=== PATIENT | male | born 1960 | race Caucasian/White ===

== ENCOUNTER 2017-11-07 12:14 | Outpatient (CLI) | payer BC, MEDICARE ==
--- NOTE | 2017-11-07 14:07 | ULT ---
HEPATIC ULTRASOUND WITH DOPPLER: HISTORY: Hepatitis C. FINDINGS: The liver shows a slightly coarse echotexture. No focal liver lesion or mass seen. The gallbladder is abnormal with a mildly thickened gallbladder wall. No evidence of gallstone identified. There is suggestion of mild pericholecystic edema. A small amount of ascites is noted. The common duct is p rominent, measured at 7 mm. No intrahepatic ductal dilatation. Color Doppler with spectral analysis shows normal blood flow in the hepatic veins, portal veins, and hepatic artery. Splenic artery exhibits normal flow. Spleen size is upper normal, measured at 11.3 cm. The pancreas is partially imaged and appears unremarkable as visualized. The pancreatic tail is not imaged. IMPRESSION: 1. Mild prominence of the extrahepatic biliary duct. 2. Small amount of ascites. 3. Gallbladder wall thickening and pericholecystic edema, which may be exacerbated by the ascites. 4. No evidence of gallstones. 5. Normal hepatic vascular flow with Doppler. POS: [facility]
== END 2017-11-07 12:15 | disposition home or self-care (01) ==
LOC: ULT 12:14
PROVIDERS: ATTEND Internal Medicine Gastroenterology
DX: B19.20 Unspecified viral hepatitis C without hepatic coma (principal); R18.8 Other ascites; K82.8 Other specified diseases of gallbladder
CPT/HCPCS: 76705

== ENCOUNTER 2018-03-11 17:47 | Inpatient (IN) | payer BC, MEDICARE ==
--- NOTE | 2018-03-11 19:10 | RAD ---
TWO VIEW CHEST: 03/11/18 HISTORY: Cough. No comparison. There is focal opacity in the left lower lung in the infrahilar region. This could represent focal in flammatory infiltrate. Because of its focal appearance, followup is necessary to make sure clearing a fter medical treatment. Heart and mediastinum unremarkable. IMPRESSION: A focal opacity in the left infrahilar region. Possibly focal infiltrate given history of cough and c ongestion. Recommend followup post treatment to ensure clearing as discussed above. Code T POS: [place]
[2018-03-11 19:31] LABS: #Lymphocytes 0.5 thou/uL (1.20-3.40); #Monocytes 0.7 thou/uL (0.11-0.59); #Neutrophils 6.5 thou/uL (1.40-6.50); %Basophils 0.1 % (0.0-1.0); %Eosinophils 0.2 % (0.0-10.0); %Monocytes 9.6 % (0.0-10.0); %Neutrophils 84.1 % (42.0-75.0); Hemoglobin 12.1 g/dL (14.0-18.0); Mean Corpuscular HGB CONC 34.3 g/dL (32.0-36.0); Mean Corpuscular Hemoglobin 32.5 pg (27.0-31.0); Mean Corpuscular Volume 94.8 fl (80.0-94.0); Mean Platelet Volume 7.9 fL (7.4-10.4); Platelet Count 110 thou/uL (130-400); RBC Distribution Width 12.4 % (11.5-14.5); Red Blood Cell (RBC) Count 3.73 mill/uL (4.70-6.10); White Blood Cell (WBC) Count 7.7 thou/uL (4.8-10.8)
[2018-03-11 19:36] LABS: PLT Morphology Comment Appears Decreased; RBC Morphology Normal
[2018-03-11 19:41] LABS: ALT (SGPT) 88 U/L (8-55); AST (SGOT) 104 U/L (5-34); Albumin 2.8 g/dL (3.5-5.0); Alkaline Phosphatase 303 U/L (40-150); Anion Gap 18 mmol/L (10-20); BUN (Urea Nitrogen) 79 mg/dL (8.4-25.7); Bilirubin, Total 0.7 mg/dL (0.2-1.2); CK (CPK) 1694 U/L (30-200); Calc. Creatinine Clearance 0 mL/min (70-130); Calcium 7.5 mg/dL (7.8-10.44); Carbon Dioxide 18 mmol/L (22-29); Chloride 96 mmol/L (98-107); Estimated GFR-MDRD 5; Globulin 3.3 g/dL (2.4-3.5); Glucose 129 mg/dL (70-105); Lipase 98 U/L (8-78); Potassium 3.6 mmol/L (3.5-5.1); Protein, Total 6.1 g/dL (6.0-8.3); Sodium 128 mmol/L (136-145)
[2018-03-11 19:45] LABS: Troponin I 0.049 ng/mL (< 0.028)
[2018-03-11 19:52] LABS: Bilirubin Negative (Negative); Blood, Urine Large (Negative); Clarity CLEAR (Clear); Glucose, Urine (Dipstick) 100 mg/dL (Negative); Leukocyte Negative (Negative); Nitrite Negative (Negative); Protein, Urine (Dipstick) 300 mg/dL (Neg-Trace); Specific Gravity, Urine 1.011 (1.002-1.036); Urobilinogen 0.2 mg/dL (0.2-1.0)
[2018-03-11 19:54] LABS: Bacteria/HPF None Seen HPF (None Seen); Hyaline Casts/LPF 0-3 HYALINE CAST LPF (0-3 Hyaline); RBC/HPF 0-3 HPF (0-3); Squamous Epithelial 0-3 HPF (0-3); WBC/HPF None Seen HPF (0-3)
[2018-03-11 19:54] LABS: CKMB 10.2 ng/mL (0-6.6)
[2018-03-11] MEDS ORDERED: MEROPENEM 1 GM/50 ML 1 GM in Premix Bag 1 BAG IVPB SCH (20:00)
[2018-03-11] MEDS ORDERED: Acetaminophen 325 MG TAB ONE (20:51)
[2018-03-11] MEDS ORDERED: Azithromycin 250 MG TAB ONE (21:15)
[2018-03-11] MEDS ORDERED: Ondansetron HCl/PF 4 MG/2 ML Vial IVP PRN (22:10)
[2018-03-11] MEDS ORDERED: Ondansetron ODT 4 MG TAB SL PRN (22:10)
[2018-03-11 22:11] LABS: Troponin I 0.047 ng/mL (< 0.028)
[2018-03-11 22:49] VITALS: BMI 26.8
[2018-03-11] MEDS ORDERED: traZODone HCl 50 MG TAB PO SCH (23:45)
[2018-03-12] MEDS ORDERED: Nitroglycerin 0.4 MG TAB (25 Tab Bottle) PO PRN (01:24)
[2018-03-12] MEDS ORDERED: Acetaminophen 325 MG TAB PO PRN (01:28)
[2018-03-12] MEDS ORDERED: Milk Of Magnesia 30 ML UDCUP PO PRN (01:28)
[2018-03-12] MEDS ORDERED: Senokot 8.6 MG TAB PO PRN (01:28)
[2018-03-12] MEDS ORDERED: Calcium Carbonate 500 MG ChewTAB PO PRN (01:28)
--- NOTE | 2018-03-12 02:08 | HP ---
DATE OF ADMISSION: 03/11/2018 The patient was seen and examined on 03/11/2018. PRIMARY CARE PHYSICIAN: Dr. Velasco. PRIMARY EXTRUDING MACHINE OPERATOR: Dr. Sorto. CHIEF COMPLAINT: Generalized weakness. HISTORY OF PRESENT ILLNESS: The patient is a 57-year-old male with end-stage renal disease on peritoneal dialysis with recent liver biopsy, presented to the emergency room with above complaints. Over the last 4-5 days, the patient has been feeling generally weak with malaise. He has a history of chronic hepatitis C and underwent liver biopsy at [facility] last week. Since then, he has not been feeling well. He denies any fever; however, has intermittent chills. He had some nausea without any vomiting or diarrhea. He has been coughing over the last 5 days also. The cough is productive of clear scanty phlegm. He denies any sick contacts. In the emergency room, his vital signs showed temperature 99.7, respirations of 18, pulse 82, blood pressure 158/77 with O2 saturation 95% on room air. His chest x-ray showed focal infiltrate in the left infrahilar region. He received azithromycin, meropenem with Tylenol in the emergency room. PAST MEDICAL HISTORY: 1. End-stage renal disease, on peritoneal dialysis. 2. Chronic hepatitis C. 3. Anemia secondary to renal insufficiency. 4. Hypertension. 5. Anxiety and depression. PAST SURGICAL HISTORY: 1. Dialysis access. 2. Appendectomy. 3. Left shoulder surgery. 4. Recent liver biopsy. ALLERGIES: The patient denies any drug allergies. CURRENT HOME MEDICATIONS: Amlodipine 10 mg daily, calcitriol 0.5 mg daily, ferrous sulfate daily, hydralazine 50 mg 3 times daily, metoprolol tartrate 50 mg twice a day, Renvela 800 mg three times daily, trazodone 100 mg at bedtime. SOCIAL HISTORY: The patient currently lives at home. Denies any current use of smoking or drug use. He has history of cannabis abuse. He has abused heroin in the remote past. FAMILY HISTORY: Negative for premature coronary artery disease or diabetes. REVIEW OF SYSTEMS: The following complete review of systems was negative, unless otherwise mentioned in the HPI or below: Constitutional: Weight loss or gain, ability to conduct usual activities. Skin: Rash, itching. Eyes: Double vision, pain. ENT/Mouth: Nose bleeding, neck stiffness, pain, tenderness. Cardiovascular: Palpitations, dyspnea on exertion, orthopnea. Respiratory: Shortness of breath, wheezing, cough, hemoptysis, fever or night sweats. Gastrointestinal: Poor appetite, abdominal pain, heartburn, nausea, vomiting, constipation, or diarrhea. Genitourinary: Urgency, frequency, dysuria, nocturia. Musculoskeletal: Pain, swelling. Neurologic/Psychiatric: Anxiety, depression. Allergy/Immunologic: Skin rash, bleeding tendency. PHYSICAL EXAMINATION: VITAL SIGNS: As discussed above. GENERAL: A 57-year-old male with generalized weakness and fatigue. HEENT: Head atraumatic, normocephalic. Sclerae are anicteric. Moist mucous membranes. No oral lesion. NECK: Supple, no JVD appreciated. No carotid bruit. LUNGS: Showed scattered rhonchi with left-sided rales. No wheezing appreciated. HEART: S1, S2 present. Regular rate and rhythm. No murmur, rubs, or gallops appreciated. ABDOMEN: Soft, bowel sounds present. No drainage around the peritoneal dialysis catheter. No rebound or guarding. EXTREMITIES: No edema or calf tenderness. NEUROLOGIC: Grossly nonfocal, moves all four extremities. PSYCHIATRY: Alert, awake, oriented x3. SKIN: Warm and dry. LYMPH NODES: No palpable lymph nodes in the neck. PERIPHERAL VASCULAR: Radial pulses palpable bilaterally. MUSCULOSKELETAL: No joint swelling or tenderness. LABORATORY AND X-RAY FINDINGS: 1. CBC showed WBC 7.7 with hemoglobin 12.1, hematocrit 35.4, platelet of 110. 2. Chemistries showed sodium 128, potassium 3.6, chloride 96, bicarbonate 18, BUN 79, creatinine 10.81. 3. CK was 1694. 4. Troponins of 0.049. BNP 680. Albumin 2.8. 5. Peritoneal fluid culture, Gram stain was negative. Cultures pending. 6. Chest x-ray by my review as discussed above. 7. Telemetry monitoring by my review showed sinus rhythm. 8. EKG by my review showed sinus rhythm with QT interval of 486 milliseconds. IMPRESSION: 1. Sepsis due to pneumonia ? Pneumococcus vs Viral. Rule out other pathology. 2. Rhabdomyolysis, probably secondary to sepsis. 3. Elevated BNP, probably secondary to volume overload in the setting of end- stage renal disease. Rule out congestive heart failure. 4. Abnormal liver function tests. The patient underwent recent liver biopsy. 5. Hypoalbuminemia secondary to history of nephrotic syndrome. 6. Hyponatremia. 7. Thrombocytopenia, probably secondary to sepsis. 8. Metabolic acidosis, probably secondary to sepsis. Lactic acid was normal. 9. End-stage renal disease on peritoneal dialysis. 10. Anxiety and depression. 11. Cannabis abuse. 12. Elevated troponins, probably secondary to demand ischemia. PLAN: The patient will be monitored on the telemetry unit. We will continue empiric antibiotics. Nephrology has been consulted for peritoneal dialysis management. We will consult Infectious Disease due to history of chronic hepatitis C with recent liver biopsy. We will continue empiric antibiotics. We will repeat CK. Echocardiogram will be obtained. We will monitor platelets closely. We will avoid heparin or Lovenox due to thrombocytopenia. Plan of care was discussed with the patient in detail. He stated understanding. The patient will require 2-3 days for stabilization. MTDD
[2018-03-12] MEDS: cefTRIAXone\\ROCEPHIN 1 GM in Sodium Chloride 0.9% 100 ML IVPB SCH (02:40)
[2018-03-12 05:42] LABS: #Lymphocytes 0.6 thou/uL (1.20-3.40); #Monocytes 0.8 thou/uL (0.11-0.59); #Neutrophils 5.8 thou/uL (1.40-6.50); %Eosinophils 0.5 % (0.0-10.0); %Lymphocytes 8.5 % (21.0-51.0); %Monocytes 11.3 % (0.0-10.0); %Neutrophils 79.6 % (42.0-75.0); Hemoglobin 11.9 g/dL (14.0-18.0); INR-International Normal Ratio 1.1; Mean Corpuscular HGB CONC 33.6 g/dL (32.0-36.0); Mean Corpuscular Hemoglobin 32.3 pg (27.0-31.0); Mean Platelet Volume 8.2 fL (7.4-10.4); Platelet Count 112 thou/uL (130-400); RBC Distribution Width 12.4 % (11.5-14.5); Red Blood Cell (RBC) Count 3.68 mill/uL (4.70-6.10); White Blood Cell (WBC) Count 7.3 thou/uL (4.8-10.8)
[2018-03-12 05:43] LABS: PTT 38.5 SEC (22.9-36.1)
[2018-03-12 05:59] LABS: Troponin I 0.054 ng/mL (< 0.028)
[2018-03-12 06:01] LABS: ALT (SGPT) 78 U/L (8-55); AST (SGOT) 90 U/L (5-34); Albumin 2.7 g/dL (3.5-5.0); Alkaline Phosphatase 279 U/L (40-150); Anion Gap 16 mmol/L (10-20); BUN (Urea Nitrogen) 79 mg/dL (8.4-25.7); Bilirubin, Total 0.6 mg/dL (0.2-1.2); CK (CPK) 1433 U/L (30-200); Calc. Creatinine Clearance 9 mL/min (70-130); Calcium 7.6 mg/dL (7.8-10.44); Carbon Dioxide 21 mmol/L (22-29); Chloride 98 mmol/L (98-107); Estimated GFR-MDRD 5; Globulin 3.1 g/dL (2.4-3.5); Glucose 95 mg/dL (70-105); Potassium 3.3 mmol/L (3.5-5.1); Protein, Total 5.8 g/dL (6.0-8.3); Sodium 132 mmol/L (136-145)
[2018-03-12] MEDS: Diabetic Tussin 200 MG/10 ML UDCUP PO PRN ×2 (06:08→20:00)
[2018-03-12] MEDS: Ferrous Sulfate 325 MG TAB PO SCH (09:46)
[2018-03-12] MEDS: Aspirin 81 mg Enteric Coated Tablet PO SCH (09:46)
[2018-03-12] MEDS: Metoprolol Tartrate 50 MG TAB PO SCH ×2 (09:46→20:01)
[2018-03-12] MEDS: Sevelamer Carbonate 800 MG TAB PO SCH ×3 (09:47→16:54)
[2018-03-12] MEDS: hydrALAZINE 25 MG TAB PO SCH ×3 (09:47→20:00)
[2018-03-12] MEDS: Calcitriol 0.25 MCG CAP PO SCH (09:48)
[2018-03-12] MEDS: Doxycycline 100 MG CAP PO SCH ×2 (09:48→20:00)
[2018-03-12] MEDS: Amlodipine 10 MG TAB PO SCH (09:48)
--- NOTE | 2018-03-12 10:47 | CON ---
DATE OF CONSULTATION: 03/12/2018 HISTORY OF PRESENT ILLNESS: Mr. Jones is a 57-year-old male with ESRD and currently on daphne toneal dialysis. He was admitted for fever and chills. According to the patient, he was having feve r one day prior to admission. Also, of interest, he underwent transjugular liver biopsy done in [facility] as part of his transplant workup for his renal transplant workup. We are now following this neeru ent for maintenance peritoneal dialysis. He underwent peritoneal dialysis without any difficulty yes terday. The patient is feeling better this morning. REVIEW OF SYSTEMS: Positive for fever and chills. Positive for nausea, positive for generalized mal aise, decreased appetite. No chest pain or shortness of breath, no diarrhea, no constipation, no dys uria. Occasional joint pains. No new skin rash. No sore throat, no syncopal episode, no headache, no diplopia. MEDICATIONS: The patient is currently on DuoNeb q.4. p.r.n., Norvasc 10 mg daily, Ecotrin 81 mg onc e a day, calcitriol 0.5 mcg every day, Tums 1000 mg q.4 hours, ceftriaxone 1 gram IV q.24 hours. Vib ramycin 100 mg p.o. b.i.d., ferrous sulfate 325 mg once a day, Lopressor 50 mg b.i.d., Renvela 800 mg 1 tab t.i.d. with meals, Desyrel 100 mg at bedtime. PAST MEDICAL HISTORY: 1. ESRD - currently on peritoneal dialysis, secondary to chronic GN. 2. Chronic hepatitis C. Status post antiviral medication. Serologies are now normal. 3. Hypertension. 4. Secondary hyperparathyroidism. PAST SURGICAL HISTORY: 1. Status post left shoulder surgery. 2. Status post appendectomy. 3. Status post tonsillectomy. 4. Status post PD catheter placement. 5. Status post liver biopsy. ALLERGIES: None. TRAUMA: None. IMMUNIZATIONS: Up to date. HOSPITALIZATIONS: Please see past medical history. FAMILY HISTORY: No family history of ESRD. SOCIAL HISTORY: He lives in [place]. He is a retired truck sales representative. He is , no child tanya. Education; high school. Smoked for 25 years, 1 pack a day. Alcohol none. Status post blood t ransfusion, status post IV heroin use. PHYSICAL EXAMINATION: VITAL SIGNS: Blood pressure 162/76, heart rate 72, respiratory rate 17, temperature 97.6, pulse ox 9 7%. GENERAL: Noted to be awake, supine, comfortable, not in distress. SKIN: Adequate turgor. HEENT: He has pinkish conjunctivae, anicteric sclerae. NECK: No neck mass, no carotid bruits, no JVD. CHEST: No deformities. LUNGS: Clear breath sounds, no wheezing, no crackles. HEART: Normal sinus rhythm. No murmur, no gallops, no rubs. ABDOMEN: Globular, soft, nontender. No masses. EXTREMITIES: No edema, no deformities. Chest x-ray of 03/11/2018, opacity in the left infrahilar region. LABORATORY: White count 7.3, hemoglobin 11.9. Sodium 132, potassium 3.3, chloride 98, carbon dioxid e 21, BUN 79, creatinine 10.06, glucose 95, AST 90, ALT 78, CK 1433, albumin 2.7. ASSESSMENT AND PLAN: 1. End-stage renal disease, stable. Continue current CCPD regimen. Using 1.5% PD solution due to t he recent decreased p.o. intake. Review of the last Kt/V suggests he is adequately dialyzed with the current peritoneal dialysis. 2. Elevated liver function tests/chronic hepatitis C - the patient being reevaluated by his Renal Tr ansplant Program. He underwent a liver biopsy. He did receive antiviral therapy for his chronic hep atitis C. 3. Hypertension. Continue current blood pressure meds. 4. Mild hypokalemia - continue to observe. This should improve with his increased p.o. intake. I agree with the current management.
--- NOTE | 2018-03-12 14:06 | PDOC.EVN ---
Event Note - Event Note Event Note: Discussed with patient and Family, about Plan to continue Monitor him for any fever, and source of infection. Will follow Dr. Sorto recommedations regarding PD.
[2018-03-12 19:17] LABS: Legionella Urinary Ag Negative (Negative); Strep pneumo Urine Ag NEGATIVE (NEGATIVE)
[2018-03-12] MEDS ORDERED: traZODone HCl 50 MG TAB PO SCH (21:00)
[2018-03-13] MEDS: cefTRIAXone\\ROCEPHIN 1 GM in Sodium Chloride 0.9% 100 ML IVPB SCH (01:11)
--- NOTE | 2018-03-13 01:35 | CON ---
DATE OF CONSULTATION: 03/12/2018 REASON FOR CONSULTATION: Fever. HISTORY OF PRESENT ILLNESS: A 57-year-old patient who has a history of chronic hepatitis C; chronic renal failure with end-stage renal disease, on peritoneal dialysis, the renal failure appears to be s econdary to chronic glomerulonephritis associated with hepatitis C who has completed treatment for he patitis C, which appears to have been successful about a year ago and he has been evaluated for possi ble renal transplantation. As part of that evaluation, he underwent a liver biopsy about a week ago in [place]. Apparently, they did a transvenous approach for the biopsy and he reports that he did rangel ve pain during the procedure. After the procedure, he never felt back to baseline and then he starte d having a lot of coughing spells and had general malaise, had some fever up to 101 with chills, some nausea, but no diarrhea and no genitourinary symptoms. He had some rhinorrhea as well associated wi th the above symptoms. Eventually, he came to the emergency room where he was admitted. He had a sm all area of infiltration in the left side. He was given antimicrobial therapy and he is currently in the floor in the [facility] area. He is pleasant, in no acute distress. He feels better since admission. No headaches, visual symptoms, sore throat, odynophagia, or dysphagia. No toothache. No back pain . Cough has improved. No abdominal pain. No genitourinary symptoms. No bleeding. No joint sympto ms. No skin disorder. PAST MEDICAL HISTORY: Chronic hepatitis C, which has been successfully treated reportedly in [place] ; recent liver biopsy, which was done as part of evaluation for possible renal transplant; peritoneal dialysis for management of end-stage renal disease; hypertension; chronic glomerulonephritis, which led to end-stage renal disease. PAST SURGICAL HISTORY: Peritoneal dialysis access placement; appendectomy; liver biopsy, which was d one via transvenous route. ALLERGIES: None. MEDICATIONS AT HOME: Norvasc, calcitriol, ferrous sulfate, hydralazine, metoprolol, Renvela, trazodo ne. SOCIAL HISTORY: He lives in the area. Former smoker. History of IV heroin in the remote past. 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 FAMILY HISTORY: Noncontributory. CURRENT MEDICATIONS: Include Tylenol, DuoNeb, Norvasc, Ecotrin, Rocaltrol, ceftriaxone, doxycycline, Apresoline, Lopressor, Senokot, trazodone. PHYSICAL EXAMINATION: VITAL SIGNS: T-max 99.3, blood pressure 160/80, pulse 70, respirations 17, O2 saturation 97%. GENERAL: Appears in no distress, pleasant. SKIN: With no areas of skin breakdown. The patient has a peripheral IV access. He does not have a Quintero catheter. No lymphadenopathy. HEENT: Ocular movements conjugate. Oral cavity was not remarkable. NECK: Supple. No jugular vein distention. LUNGS: Symmetric air entry. I could not perceive any evidence of crackles or wheezing. HEART: S1, S2 without murmurs. No S3, S4. ABDOMEN: Soft, not distended, no tenderness. No ascites. No bladder distention. EXTREMITIES: No joint inflammatory activity. Pulses 1+ in dorsalis pedis. No clubbing, cyanosis, o r edema. He is able to move extremities equally. NEUROLOGIC: His cognitive function appears to be intact. LABORATORY DATA: Initial white cell count 7.7, hemoglobin 12, platelets 110, 84% neutrophils. INR i s 1.1. Sodium 132, creatinine 10.6, alkaline phosphatase 279, ALT 78, AST 90. CK was 1400. Microbi ology: We have peritoneal dialysis fluid culture pending. I do not find a cell count from the perit rowe dialysis fluid. The patient had a chest x-ray on admission yesterday. This demonstrated a focal opacity in left lowe r lung, infrahilar region. ASSESSMENT: 1. End-stage renal disease secondary to glomerulonephritis, on peritoneal dialysis. 2. Evaluation for renal transplant with recent liver biopsy about a week before. 3. Respiratory symptoms with cough following the biopsy associated with fever. DISCUSSION: Differential diagnosis includes respiratory tract infection, either viral or bacterial; thromboembolism less likely. Complication related to the biopsy is another possibility. This appear s to be less likely though because his hemoglobin seems to be stable. Continue current regimen. [place] ck respiratory virus PCR panel, Legionella, and Streptococcus pneumoniae antigen. Follow up results of peritoneal dialysis fluid cultures. Clinically, the evidence argues against PD-associated complic ations.
[2018-03-13 05:29] LABS: #Eosinphils 0.2 thou/uL (0.0-0.7); #Lymphocytes 0.8 thou/uL (1.20-3.40); #Monocytes 0.8 thou/uL (0.11-0.59); #Neutrophils 4.9 thou/uL (1.40-6.50); %Basophils 0.4 % (0.0-1.0); %Eosinophils 2.6 % (0.0-10.0); %Monocytes 11.2 % (0.0-10.0); %Neutrophils 73.8 % (42.0-75.0); Hemoglobin 11.7 g/dL (14.0-18.0); Mean Corpuscular HGB CONC 34.1 g/dL (32.0-36.0); Mean Corpuscular Hemoglobin 32.7 pg (27.0-31.0); Mean Corpuscular Volume 95.7 fl (80.0-94.0); Mean Platelet Volume 8.1 fL (7.4-10.4); Platelet Count 125 thou/uL (130-400); RBC Distribution Width 12.6 % (11.5-14.5); White Blood Cell (WBC) Count 6.7 thou/uL (4.8-10.8)
[2018-03-13 05:43] LABS: ALT (SGPT) 69 U/L (8-55); AST (SGOT) 76 U/L (5-34); Albumin 2.7 g/dL (3.5-5.0); Alkaline Phosphatase 315 U/L (40-150); Anion Gap 14 mmol/L (10-20); BUN (Urea Nitrogen) 72 mg/dL (8.4-25.7); Bilirubin, Total 0.5 mg/dL (0.2-1.2); Calc. Creatinine Clearance 10 mL/min (70-130); Calcium 7.7 mg/dL (7.8-10.44); Carbon Dioxide 22 mmol/L (22-29); Chloride 99 mmol/L (98-107); Estimated GFR-MDRD 6; Globulin 3.2 g/dL (2.4-3.5); Glucose 83 mg/dL (70-105); Potassium 3.3 mmol/L (3.5-5.1); Protein, Total 5.9 g/dL (6.0-8.3); Sodium 132 mmol/L (136-145)
[2018-03-13] MEDS: Ferrous Sulfate 325 MG TAB PO SCH (08:18)
[2018-03-13] MEDS: Sevelamer Carbonate 800 MG TAB PO SCH ×2 (08:18→12:13)
[2018-03-13] MEDS: Amlodipine 10 MG TAB PO SCH (08:19)
[2018-03-13] MEDS: hydrALAZINE 25 MG TAB PO SCH ×2 (08:19→15:13)
[2018-03-13] MEDS: Aspirin 81 mg Enteric Coated Tablet PO SCH (08:19)
[2018-03-13] MEDS: Calcitriol 0.25 MCG CAP PO SCH (08:19)
[2018-03-13] MEDS: Doxycycline 100 MG CAP PO SCH (08:19)
[2018-03-13] MEDS: Metoprolol Tartrate 50 MG TAB PO SCH (08:20)
[2018-03-13] MEDS: Diabetic Tussin 200 MG/10 ML UDCUP PO PRN (08:22)
[2018-03-13 12:12] VITALS: BP 155/77; TEMP 97.4
--- NOTE | 2018-03-13 13:51 | PRG ---
DATE OF SERVICE: 03/13/2018 SUBJECTIVE: Mr. Jones is a 57-year-old male with ESRD and currently on peritoneal dialysis. He is tolerating the current peritoneal dialysis regimen. No changes are being made with the perit rowe dialysis. Please note he was admitted for fever and presumptive diagnosis of pneumonia. Cultu res so far have been negative. PD fluid has been shown to be negative for any evidence of peritoniti s. However, ID consult was done and recommendation to do a nasopharyngeal swab for respiratory virus was done and it showed he was positive for parainfluenza 3. No new complaints today. He is actually feeling much better. He wants to go home. No complaint of chest pain or shortness of breath. OBJECTIVE: VITAL SIGNS: Blood pressure 152/73, heart rate 68, respiratory rate 18, temperature 97.8, pulse ox 9 5%. GENERAL: Awake, alert, comfortable, sitting, not in distress. SKIN: Adequate turgor. HEENT: Pinkish conjunctivae, anicteric sclerae. NECK: No neck mass, no carotid bruits, no JVD. CHEST: No deformities. LUNGS: Clear breath sounds, no wheezing, no crackles. HEART: Normal sinus rhythm. No murmurs, no gallops, no rubs. ABDOMEN: Globular, soft, nontender. No masses. Positive for PD catheter. EXTREMITIES: No edema, no deformities. MEDICATIONS: Medications of 03/13/2018 was reviewed. LABORATORY DATA: Laboratories of 03/13/2018; white count 6.7, hemoglobin 11.7, sodium 132, potassium 3.3, chloride 99, carbon dioxide 22, BUN 72, creatinine 9.19, AST 76, ALT 69, albumin 2.7. ASSESSMENT AND PLAN: 1. Fever - resolved - empiric antibiotics given. So far PD fluid and blood culture all negative. H e did have a positive respiratory viral infection. Continue supportive care. ID following. 2. End-stage renal disease, stable. Tolerating current peritoneal dialysis. No changes will be mad e with his current peritoneal dialysis regimen. 3. Agree with current management.
--- NOTE | 2018-03-13 15:23 | DIS ---
DATE OF ADMISSION: 03/11/2018 DATE OF DISCHARGE: 03/13/2018 DISCHARGE DIAGNOSES: 1. Febrile episode, etiology unclear. 2. Diarrhea, antibiotic associated. 3. End-stage renal disease with peritoneal dialysis. 4. Chronic hepatitis C, status post liver biopsy. 5. Hyponatremia. 6. Hypokalemia. 7. Elevated troponin I secondary to end-stage renal disease. CONSULTATIONS: Dr. Romeo Cortez with Infectious Disease Service. Dr. Sorto with Nephrology Service. PERTINENT LABORATORY AND X-RAY FINDINGS: Sodium ranged between 128-132, potassium ranged between 3.3 -3.6. Lactic acid level 1.2, creatinine ranged between 9.19-10.81. AST ranged between 76-104, ALT r anged between 69-88, troponin I ranged between 0.047-0.054. Lipase 98. CBC showed hemoglobin rangin g between 11.7-12.1. Urine Legionella pneumophila antigen negative 03/12/2018. Urine Streptococcal pneumonia antigen 03/12/2018 negative. Blood cultures x2 from 03/11/2018 showed no growth at 48 hour s. Peritoneal fluid culture dated 03/11/2018 showed no growth at 36 hours. Respiratory virus panel by PCR dated 03/12/2018 positive for parainfluenza 3. Portable chest x-ray dated 03/11/2018 showed l eft infrahilar opacity. A 2D transthoracic echocardiogram dated 03/12/2018 showed ejection fraction 50%-55%. Grade 2/3 diastolic dysfunction. Moderate left atrial enlargement. HOSPITAL COURSE: Patient was admitted to the telemetry unit after initially presenting with febrile episode, status post recent liver biopsy. The patient with longstanding chronic hepatitis C with und ergoing a liver biopsy approximately a week prior to this admission. The patient presented with low grade fever and malaise, undergoing extensive evaluation including blood and urine cultures, which we re negative as stated previously. The patient was placed on broad spectrum antibiotic coverage inclu ding Rocephin and doxycycline without specific identifiable etiology of fever. The patient did devel op diarrhea after initiation of antibiotics with stools studies pending at the time of this dictation . The patient was evaluated by the Infectious Disease service with recommendations for general suppo rtive management. The patient overall clinically remained stable throughout the hospital course. Cu rrent vital signs are stable without evidence of recurrent fever. The patient has been tolerating re gular oral intake and ambulating without assistance or difficulty. I have examined the patient at th e time of discharge and discussed pertinent laboratory findings and follow up instructions. Patient verbalizes understanding and agreement and will discharge home on 03/13/2018. DISCHARGE MEDICATIONS: 1. Amlodipine 10 mg 1 tab p.o. daily. 2. Calcitriol 0.25 mcg 2 capsules p.o. daily. 3. Feosol 325 mg daily. 4. Apresoline 50 mg p.o. t.i.d. 5. Metoprolol tartrate 50 mg p.o. b.i.d. 6. Renvela 800 mg p.o. t.i.d. 7. Trazodone 100 mg p.o. at bedtime. FOLLOWUP: Patient will follow up with his primary care provider, Dr. Cayden Velasco within 7 days of cj bolton. The patient will follow up with Dr. Sorto with Nephrology Service and to call his office for appointment time and date. CONDITION ON DISCHARGE: Stable. ACTIVITY: Ad alexandra. DIET: Heart healthy. CODE STATUS: FULL. DISPOSITION: Home, 03/13/2018. Total time preparing and coordinating discharge 32 minutes.
== END 2018-03-13 15:57 | disposition home or self-care (01) | DRG 152 ==
LOC: ERS 17:47 → 2NO 20:50
PROVIDERS: ADMIT Internal Medicine; ATTEND Internal Medicine
DX: J06.9 Acute upper respiratory infection, unspecified (principal); N18.6 End stage renal disease; I12.0 Hypertensive chronic kidney disease with stage 5 chronic kidney disease or end stage renal disease; K52.1 Toxic gastroenteritis and colitis; E87.1 Hypo-osmolality and hyponatremia; Z99.2 Dependence on renal dialysis; B18.2 Chronic viral hepatitis C; F41.9 Anxiety disorder, unspecified; F32.9 Major depressive disorder, single episode, unspecified; D63.1 Anemia in chronic kidney disease; R50.9 Fever, unspecified; T36.95XA Adverse effect of unspecified systemic antibiotic, initial encounter; Y92.89 Other specified places as the place of occurrence of the external cause; E87.6 Hypokalemia; Z87.891 Personal history of nicotine dependence
CPT/HCPCS: 36415; 71046; 80053; 81003; 81015; 82550; 82553; 83605; 83690; 83880; 84484; 85025; 85610; 85730; 87040; 87045; 87046; 87070; 87081; 87205; 87324; 87449; 87633; 87899; 93005; 93306; 94760; 96365; A4216; J0696; J2185; J7050

== ENCOUNTER 2018-04-04 18:41 | Emergency (ER) | payer BC, MEDICARE | END 2018-04-04 22:11 | disposition home or self-care (01) | LOC: ERS 18:41 | DX: T85.611A Breakdown (mechanical) of intraperitoneal dialysis catheter, initial encounter (principal); I12.9 Hypertensive chronic kidney disease with stage 1 through stage 4 chronic kidney disease, or unspecified chronic kidney disease; N18.9 Chronic kidney disease, unspecified; F41.9 Anxiety disorder, unspecified; F32.9 Major depressive disorder, single episode, unspecified; B19.20 Unspecified viral hepatitis C without hepatic coma; Z99.2 Dependence on renal dialysis | CPT/HCPCS: 99283 ==

== ENCOUNTER 2019-11-19 08:19 | Day surgery (SDC) | payer MEDICARE ==
[2019-11-02 11:06] VITALS: BMI 24.1
--- NOTE | 2019-11-02 12:25 | HP ---
HISTORY OF PRESENT ILLNESS: Delgado Jones is a 59-year-old male patient who does peritoneal dialysis at home. I placed a laparoscopic double cuffed pigtail dialysis catheter on 09/20/2016 as well as a right arm primary fistula, perforating branch antecubital vein to proximal radial artery outflow basilic vein only. Cephalic vein occluded. Retrograde antecubital vein fibrotic non-existent. He was noted to need a basilic vein transposition fistula in the future kidney functioning fistula. I saw him last year in the office in May. He had a fractured PD catheter. We were fortunately able to acquire the materials from the hospital to splice this and repair, so he is able to continue peritoneal dialysis. This has worked well for him. He now reports today with the splicing segment having failed and he has a clamp on his PD catheter. He has been emptying and filling without problems. Lastly, we talked about a right basilic vein transposition fistula and he stated he would call, but he postponed this today. His was with him and she is going through chemotherapy. They decided to proceed with a right arm basilic vein transposition fistula under regional TIVA versus general anesthesia per Anesthesia choice. We would plan that next week as an outpatient. Follow up in my office in 2 weeks for staple removal. He understands risks and benefits, consents. TOBACCO: None. ALCOHOL: None. MEDICATIONS: 1. Alprazolam. 2. Amlodipine. 3. Ferric citrate. 4. Calcitriol. 5. Calcium. 6. Hydralazine. 7. Ibuprofen p.r.n. 8. Tums. 9. Zoloft. PAST MEDICAL HISTORY: Hepatitis C, hypertension, end-stage renal disease, and history of drug use. PAST SURGICAL HISTORY: Laparoscopic PD catheter placement and right arm fistula on 09/20/2016, repair of PD catheter in the office in May 2019. PHYSICAL EXAMINATION: VITAL SIGNS: 157 pounds, 68 inches, 123/71, 61, and 97 degrees. HEAD, EARS, EYES, NOSE, AND THROAT: Unremarkable. LUNGS: Clear to auscultation. CARDIAC: Regular rate and rhythm without murmur or gallop. ABDOMEN: Soft. PD catheter in place. The stump has clamp. In the office, this was spliced and repaired sterilely. EXTREMITIES: Right arm basilic vein fistula good thrill and bruit. Well developed. ASSESSMENT AND PLAN: Right arm fistula. PLAN: Basilic vein transposition fistula as an outpatient. He understands risks and benefits, consents. Job ID: [id number]
[2019-11-19] MEDS ORDERED: Metoprolol Tartrate 5 MG/5 ML VIAL ONE (09:42)
[2019-11-19] MEDS ORDERED: EPHEDRINE 25 MG/5 ML SYRINGE ONE (09:42)
[2019-11-19] MEDS ORDERED: Bupivacaine HCl 0.5%/Epinephrine 1:200,000/PF 30 ml Vial ONE (09:42)
[2019-11-19] MEDS ORDERED: Lidocaine 1% PF 5 ML VIAL ONE (09:42)
[2019-11-19] MEDS ORDERED: PHENYLEPHRINE-NS 100 MCG/ML 10 ML SYRINGE ONE (09:42)
[2019-11-19] MEDS ORDERED: Metoclopramide HCl 10 MG/2 ML VIAL ONE (09:42)
[2019-11-19] MEDS ORDERED: Ondansetron PF 4 MG/2 ML Vial ONE (09:42)
[2019-11-19 09:46] LABS: #Eosinphils 0.1 thou/uL (0.0-0.7); #Lymphocytes 0.6 thou/uL (1.20-3.40); #Monocytes 0.9 thou/uL (0.11-0.59); #Neutrophils 5.6 thou/uL (1.40-6.50); %Eosinophils 1.8 % (0.0-10.0); %Lymphocytes 8.5 % (21.0-51.0); %Monocytes 12.2 % (0.0-10.0); %Neutrophils 77.6 % (42.0-75.0); Hemoglobin 10.8 g/dL (14.0-18.0); Mean Corpuscular HGB CONC 33.4 g/dL (32.0-36.0); Mean Corpuscular Hemoglobin 32.1 pg (27.0-31.0); Mean Corpuscular Volume 96.3 fL (78.0-98.0); Mean Platelet Volume 7.6 fL (7.4-10.4); Platelet Count 226 thou/uL (130-400); RBC Distribution Width 13.9 % (11.5-14.5); Red Blood Cell (RBC) Count 3.37 mill/uL (4.70-6.10); White Blood Cell (WBC) Count 7.3 thou/uL (4.8-10.8)
[2019-11-19] MEDS ORDERED: Heparin 5,000 UNITS/ML VIAL ONE (09:55)
[2019-11-19] MEDS ORDERED: Bupivacaine PF 0.5% 30 ML VIAL ONE (09:55)
[2019-11-19] MEDS ORDERED: EPINEPHrine 1 MG/ML AMP ONE (09:55)
[2019-11-19] MEDS ORDERED: Protamine Sulfate 50 MG/5 ML VIAL ONE (09:55)
[2019-11-19] MEDS ORDERED: Lidocaine 2% PF 5 ML VIAL ONE (09:56)
[2019-11-19] MEDS ORDERED: Ioversol 68 % 50 ML VIAL ONE (09:56)
[2019-11-19 10:07] LABS: Anion Gap 21 mmol/L (10-20); BUN (Urea Nitrogen) 116 mg/dL (8.4-25.7); Calc. Creatinine Clearance 6 mL/min (70-130); Calcium 8.5 mg/dL (7.8-10.44); Carbon Dioxide 22 mmol/L (23-31); Chloride 99 mmol/L (98-107); Estimated GFR-MDRD 4; Glucose 80 mg/dL (80-115); Potassium 3.8 mmol/L (3.5-5.1); Sodium 138 mmol/L (136-145)
[2019-11-19] MEDS ORDERED: Fentanyl 100 MCG/2 ML VIAL ONE ×3 (10:35→13:21)
[2019-11-19] MEDS ORDERED: Famotidine/PF 20 mg/2ml Vial ONE (10:36)
[2019-11-19] MEDS ORDERED: PROPOFOL 60 ML ONE (10:45)
[2019-11-19] MEDS ORDERED: Phenylephrine HCL 10 MG/ML VIAL ONE (11:48)
[2019-11-19] MEDS ORDERED: Midazolam HCl 2 mg/2 ml Vial SLOW IVP PRN (13:02)
[2019-11-19] MEDS ORDERED: Promethazine HCl 25 MG/ML VIAL SLOW IVP PRN (13:02)
[2019-11-19] MEDS ORDERED: Ondansetron HCl/PF 4 MG/2 ML Vial IVP PRN (13:02)
[2019-11-19] MEDS ORDERED: Promethazine HCl 25 MG/ML VIAL IM PRN (13:02)
--- NOTE | 2019-11-19 14:09 | OP ---
DATE OF PROCEDURE: 11/19/2019 PREOPERATIVE DIAGNOSES: 1. End-stage renal disease. 2. Cirrhosis. 3. Occluded cephalic vein, right arm. POSTOPERATIVE DIAGNOSES: 1. End-stage renal disease. 2. Cirrhosis. 3. Occluded cephalic vein, right arm. PROCEDURE PERFORMED: Right arm basilic vein transposition fistula. ANESTHESIA: Regional, TIVA, LMA general (the patient became confused and uncooperative). DESCRIPTION OF PROCEDURE: Right upper extremity was prepared with ChloraPrep and draped in routine fashion. An incision was made from the proximal volar forearm to the medial upper arm and into the axilla, carried down to the skin and subcutaneous tissue, unroofing the basilic vein, dividing the branch between 4-0 silk ties and clips, mobilizing marking it to maintain orientation and creating a tunnel with a #12 tunneler from the proximal volar forearm below the antecubital fossa over the anterior lateral upper arm and into the axilla. The patient was given 6000 units of heparin intravenously. The vein once marked to prevent torsion was then divided near the antecubital fossa and connected to the tunneler and tunneled and flushed with heparinized saline solution and flushed nicely and flowed nicely. End-to-end anastomosis was created with continuous suture of 6-0 Prolene, re-establishing flow, noting good flow. Harvested bed was inspected. Hemostasis was gained with cautery, 4-0 silk ties, 3-0 silk ties, and clips. Avitene applied. Subcutaneous tissue was approximated with 3-0 Monocryl, skin with manju. Sterile dressing applied. The patient tolerated the procedure well. Job ID: [id number]
--- NOTE | 2019-11-22 09:01 | EKG ---
Test Reason : PREOP Blood Pressure : / mmHG Vent. Rate : 091 BPM Atrial Rate : 091 BPM P-R Int : 168 ms QRS Dur : 086 ms QT Int : 422 ms P-R-T Axes : 068 043 097 degrees QTc Int : 519 ms Sinus rhythm with frequent Premature ventricular complexes Nonspecific ST and T wave abnormality Prolonged QT Abnormal ECG Confirmed by GABBIE ALMAGUER ([id number]) on 11/22/2019 9:01:03 AM Referred By: GARRETT Confirmed By:GABBIE ALMAGUER
== END 2019-11-19 15:34 | disposition home or self-care (01) ==
LOC: SDC 08:19
PROVIDERS: ATTEND Specialist
PROC: 05SB0ZZ Reposition Right Basilic Vein, Open Approach (ICD-10-PCS; principal; 2019-11-19)
DX: I12.0 Hypertensive chronic kidney disease with stage 5 chronic kidney disease or end stage renal disease (principal); N18.6 End stage renal disease; K74.60 Unspecified cirrhosis of liver; I82.611 Acute embolism and thrombosis of superficial veins of right upper extremity; Z79.2 Long term (current) use of antibiotics; Z79.899 Other long term (current) drug therapy; Z99.2 Dependence on renal dialysis
CPT/HCPCS: 80048; 85025; 93005; 93010; J0171; J0670; J0690; J1644; J2001; J2370; J2405; J2704; J2720; J2765; J3010; Q9967; S0020; S0028

== ENCOUNTER 2019-11-21 09:47 | Emergency (ER) | payer MEDICARE ==
[2019-11-21 10:55] LABS: #Basophils 0.2 thou/uL (0.0-0.2); #Eosinphils 0.1 thou/uL (0.0-0.7); #Lymphocytes 0.4 thou/uL (1.20-3.40); #Monocytes 1.1 thou/uL (0.11-0.59); #Neutrophils 8.2 thou/uL (1.40-6.50); %Eosinophils 1.5 % (0.0-10.0); %Lymphocytes 3.5 % (21.0-51.0); %Monocytes 10.7 % (0.0-10.0); %Neutrophils 82.3 % (42.0-75.0); Hemoglobin 10.3 g/dL (14.0-18.0); Mean Corpuscular HGB CONC 32.7 g/dL (32.0-36.0); Mean Corpuscular Volume 97.9 fL (78.0-98.0); Mean Platelet Volume 7.9 fL (7.4-10.4); Platelet Count 261 thou/uL (130-400); RBC Distribution Width 13.8 % (11.5-14.5); Red Blood Cell (RBC) Count 3.23 mill/uL (4.70-6.10); White Blood Cell (WBC) Count 9.9 thou/uL (4.8-10.8)
[2019-11-21] MEDS ORDERED: cefTRIAXone\\ROCEPHIN 1 GM VIAL ONE ×2 (11:14→12:39)
[2019-11-21] MEDS ORDERED: Morphine 4 MG/ML VIAL ONE (11:14)
[2019-11-21 11:23] LABS: ALT (SGPT) 19 U/L (8-55); AST (SGOT) 98 U/L (5-34); Albumin 2.7 g/dL (3.4-4.8); Alkaline Phosphatase 140 U/L (40-110); Anion Gap 20 mmol/L (10-20); BUN (Urea Nitrogen) 113 mg/dL (8.4-25.7); Bilirubin, Total 0.6 mg/dL (0.2-1.2); Calc. Creatinine Clearance 0 mL/min (70-130); Calcium 8.4 mg/dL (7.8-10.44); Carbon Dioxide 22 mmol/L (23-31); Chloride 98 mmol/L (98-107); Estimated GFR-MDRD 4; Globulin 3.6 g/dL (2.4-3.5); Glucose 100 mg/dL (80-115); Potassium 3.7 mmol/L (3.5-5.1); Protein, Total 6.3 g/dL (5.8-8.1); Sodium 136 mmol/L (136-145)
--- NOTE | 2019-11-21 12:05 | ULT ---
EXAM: US Venous Doppler Rt Jim PROVIDED CLINICAL HISTORY: Right upper extremity swelling after placement of arteriovenous dialysis fistula 2 days ago. COMPARISON: None FINDINGS: Grayscale, color-flow, Doppler evaluation, spectral analysis of the right upper extremity venous stru ctures is performed with 2-D imaging. There is normal luminal compressibility and flow seen in the right internal jugular vein. Pulsatile flow is seen in the right subclavian vein related to left upper extremity arterial venous d ialysis fistula. The left axillary vein demonstrates normal luminal compressibility and pulsatile venous flow also related to the arteriovenous dialysis fistula. Normal luminal compressibility and flow is seen in the left brachial vein.. There is a left upper extremity arteriovenous dialysis fistula. There is questionable narrowing invol ving the arteriovenous anastomosis; although, this is difficult to definitely interrogate with ultrasound. There is flow seen throughout the venous outflow of the fistula. Venous outflow is likely via the left basilic vein. No fluid collection or findings to suggest a hematoma are seen adjacent to the arteriovenous dialysis fistula or along the visualized venous outflow. Normal luminal compressibility seen in the visualized left upper extremity cephalic vein with pulsati le flow seen within this vein also likely related to the upper extremity AV fistula. IMPRESSION: 1. Left upper extremity arteriovenous dialysis fistula which does appear patent except for questionab le narrowing present at the arteriovenous anastomosis, this is difficult to adequately interrogate by ultrasound. Remainder of the venous outflow does appear patent.
[2019-11-21] MEDS ORDERED: Lidocaine 1% (PF) 30 ML VIAL ONE (12:39)
== END 2019-11-21 13:01 | disposition home or self-care (01) ==
LOC: ERS 09:47
DX: L76.32 Postprocedural hematoma of skin and subcutaneous tissue following other procedure (principal); L25.9 Unspecified contact dermatitis, unspecified cause; L03.113 Cellulitis of right upper limb; R73.03 Prediabetes; I10 Essential (primary) hypertension; F41.9 Anxiety disorder, unspecified; F32.9 Major depressive disorder, single episode, unspecified; K74.60 Unspecified cirrhosis of liver; Z79.899 Other long term (current) drug therapy
CPT/HCPCS: 36415; 80053; 83605; 85025; 87040; 96374; 96375; J0696; J2001; J2270

== ENCOUNTER 2019-11-30 18:56 | Emergency (ER) | payer MEDICARE | END 2019-11-30 21:28 | disposition home or self-care (01) | LOC: ERS 18:56 | DX: Z48.01 Encounter for change or removal of surgical wound dressing (principal); F41.9 Anxiety disorder, unspecified; F32.9 Major depressive disorder, single episode, unspecified | CPT/HCPCS: 99282 ==

== ENCOUNTER 2019-12-02 12:43 | Inpatient (IN) | payer MEDICARE ==
[2019-12-02 13:28] LABS: #Basophils 0.1 thou/uL (0.0-0.2); #Lymphocytes 0.5 thou/uL (1.20-3.40); #Monocytes 0.9 thou/uL (0.11-0.59); #Neutrophils 9.6 thou/uL (1.40-6.50); %Eosinophils 0.3 % (0.0-10.0); %Lymphocytes 4.4 % (21.0-51.0); %Monocytes 7.9 % (0.0-10.0); %Neutrophils 86.4 % (42.0-75.0); Hemoglobin 10.8 g/dL (14.0-18.0); Mean Corpuscular HGB CONC 32.9 g/dL (32.0-36.0); Mean Corpuscular Hemoglobin 32.2 pg (27.0-31.0); Mean Corpuscular Volume 97.7 fL (78.0-98.0); Mean Platelet Volume 7.7 fL (7.4-10.4); Platelet Count 310 thou/uL (130-400); RBC Distribution Width 13.7 % (11.5-14.5); Red Blood Cell (RBC) Count 3.35 mill/uL (4.70-6.10); White Blood Cell (WBC) Count 11.1 thou/uL (4.8-10.8)
[2019-12-02 13:51] LABS: ALT (SGPT) 20 U/L (8-55); AST (SGOT) 71 U/L (5-34); Albumin 2.7 g/dL (3.4-4.8); Alkaline Phosphatase 152 U/L (40-110); Anion Gap 22 mmol/L (10-20); BUN (Urea Nitrogen) 104 mg/dL (8.4-25.7); Bilirubin, Total 0.7 mg/dL (0.2-1.2); Calc. Creatinine Clearance 0 mL/min (70-130); Calcium 8.1 mg/dL (7.8-10.44); Carbon Dioxide 22 mmol/L (23-31); Chloride 95 mmol/L (98-107); Estimated GFR-MDRD 4; Globulin 3.2 g/dL (2.4-3.5); Glucose 143 mg/dL (80-115); Potassium 3.8 mmol/L (3.5-5.1); Protein, Total 5.9 g/dL (5.8-8.1); Sodium 135 mmol/L (136-145)
--- NOTE | 2019-12-02 14:05 | RAD ---
PORTABLE CHEST 1 VIEW: DATE: 12/02/2019. TIME: 1:48 PM. HISTORY: Altered mental status. FINDINGS: Comparison is made with the exam of 03/11/2018. The heart size is normal. The lungs are expanded without lobar consolidation, pneumothoraces, or ple ural effusions. IMPRESSION: No radiographic evidence of acute cardiopulmonary process. POS: [facility]
--- NOTE | 2019-12-02 14:27 | CT ---
EXAM: Brain CT scan Without contrast: HISTORY: Altered mental status COMPARISON: None FINDINGS: Minimal motion artifact. Atrophy and chronic white matter ischemic change. No focal mass or midline shift. No intra or extra-axial hemorrhage. The visualized sinuses and mastoids are clear of acute process. IMPRESSION: No mass or bleed or other significant acute intracranial process.
[2019-12-02 14:57] LABS: INR-International Normal Ratio 1.1; PTT 33.6 SEC (22.9-36.1); Prothrombin Time 13.7 SEC (12.0-14.7)
[2019-12-02] MEDS ORDERED: Nitroglycerin 2% Ointment 1 INCH/1 GM Packet ONE (15:32)
[2019-12-02] MEDS ORDERED: Aspirin Chewable 81 MG TAB ONE (15:32)
[2019-12-02 15:35] LABS: CKMB 28.5 ng/mL (0-6.6)
[2019-12-02] MEDS ORDERED: Heparin 25,000 units/D5W 500 ML IV SCH (17:00)
[2019-12-02] MEDS ORDERED: Heparin 10,000 UNITS/ 10 ML VIAL SLOW IVP SCH (17:00)
[2019-12-02 17:44] LABS: CKMB 25.3 ng/mL (0-6.6); Critical Call CKMB RESULT DECREASING
[2019-12-02] MEDS: Pravastatin Sodium 20 MG TAB PO SCH (20:21)
[2019-12-02] MEDS: Metoprolol Tartrate 50 MG TAB PO SCH (20:21)
[2019-12-02] MEDS: EPOETIN ALFA-EPBX (ESRD) 4,000 UNIT/ML VIAL SC SCH (20:22)
[2019-12-02] MEDS: Ziprasidone 20 MG VIAL IM PRN (22:36)
--- NOTE | 2019-12-02 22:38 | HP ---
CHIEF COMPLAINT: Altered mental status. HISTORY OF PRESENT ILLNESS: The patient is a 59-year-old male who is awaiting for his double transplant kidneys and liver, who presents with altered mental status, which is going on for few weeks on and off. He has some hallucinations and he has some foggy brain. He has some memory problem and recently, he had procedure done on the right arm when Dr. Samaniego changed his fistula because the previous one was not accessible for dialysis and apparently there was a lot of clear drainage from the area, but it stopped and it seems to be improved at this point. There was no any fever or chills. There was no any cough. No chest pain. No shortness of breath. He had multiple falls apparently. PAST MEDICAL HISTORY: Positive for; 1. Hepatitis C. 2. Liver cirrhosis from hepatitis C. 3. End-stage renal disease. PAST SURGICAL HISTORY: 1. Appendectomy. 2. Left shoulder surgery. 3. Peritoneal dialysis access. SOCIAL HISTORY: He smokes marijuana. He does not use any other drugs. He denies any alcohol intake. He denies any cigarette smoking. MEDICATIONS: Please refer to the medications list when it is available. ALLERGIES: NONE. FAMILY HISTORY: Noncontributory. REVIEW OF SYSTEMS: All 14 systems were reviewed and they are negative except for those which are mentioned in HPI. PHYSICAL EXAMINATION: VITAL SIGNS: Blood pressure is 152/93, pulse is 95, respiratory rate is 16, temperature is 98.2, O2 saturation is 97% on room air. HEENT: His head is atraumatic and normocephalic. Eyes, PERRLA. Sclerae are nonicteric. Conjunctivae palish. Oral mucosa is quite moist. NECK: Supple. LUNGS: Clear. HEART: S1, S2 normal. No S3. No S4. ABDOMEN: Soft. There is a PD catheter in place. No guarding. No masses. Bowel sounds are present, sluggish. EXTREMITIES: 1+ peripheral edema around both ankles. 1 to 2+ edema around the right arm and forearm and right hand. This is most likely secondary to the currently done procedure. NEUROLOGICAL EXAMINATION: He is aware of the place. He is aware of the time. He follows my commands and he does not have any sensory deficit, but he shows some weakness especially in the upper extremities bilaterally, which is 4/5 and lower extremities 4/5 similar bilaterally. LABORATORY DATA: White count of 11.1, hemoglobin of 10.8, hematocrit 32.7, platelet count is 310. PT is 13.7, INR is 1.1, APTT 33.6. Sodium 135, potassium 3.8, chloride 95, CO2 is 22, BUN 104, creatinine 12.87, glucose 143, AST 71, ALT 152, total bilirubin 0.7. CK-MB is 28.5, troponin I 2.379, albumin 2.7. EKG personally reviewed by me did not show any acute ST-segment elevation. He is in sinus rhythm. IMAGING STUDIES: Chest x-ray personally reviewed by me did not show any acute abnormalities. Brain CT is negative for any acute abnormalities, personally reviewed by me too. IMPRESSION: 1. Altered mental status, unclear etiology at this point, most likely related to his uremic state with very elevated BUN and elevated creatinine. 2. Qff-BG-ajrrrpeyv myocardial infarction. 3. Liver cirrhosis. 4. End-stage renal disease, on peritoneal dialysis. 5. History of hepatitis C. PLAN: Full admission. Condition is fair. Telemetry floor. Activity is bedrest and bathroom privileges with assistance. IV normal saline 100 mL/h. Nephrology consult with Dr. Sorto. The case was discussed with him. He agrees for heparin drip with bolus and follow up IV drip. We will do echocardiogram. We will get Cardiology consultation with Dr. Dowd. We will get 2 additional sets of CK-MB and troponin I. The patient received aspirin. We will continue 325 mg of aspirin once a day. Job ID: [id number]
--- NOTE | 2019-12-02 22:44 | CON ---
DATE OF CONSULTATION: HISTORY OF PRESENT ILLNESS: Mr. Jones is a 59-year-old male, who was admitted for confusion. According to the , the patient has been confused sometimes at night. He is unable to do his peritoneal dialysis consistently. Recently, he was seen by surgeon and transposition of the AV fistula was done. He also had a leak in the PD catheter, which was said to have been repaired. He is now admitted for further management of his mental status change and confusion. This has been going on for the last couple of weeks. His Xanax was being tapered by his PCP since it was suspected it might be contributing to the confusion. We are now being consulted for his maintenance peritoneal dialysis. REVIEW OF SYSTEMS: No chest pain. Positive for confusion. No nausea. No vomiting. Appetite is fair. No abdominal pain. No diarrhea. No constipation. No productive cough. No fever or chills. No gross hematuria. No dysuria. No urinary frequency. PAST MEDICAL HISTORY: The patient has ESRD on maintenance peritoneal dialysis, cirrhosis, chronic hepatitis C, hypertension, secondary hyperparathyroidism. PAST SURGICAL HISTORY: Status post left shoulder surgery, status post PD catheter placement, status post liver biopsy, status post tonsillectomy, status post appendectomy, status post AV fistula placement. ALLERGIES: NONE. TRAUMA: None. IMMUNIZATIONS: Up-to-date. HOSPITALIZATIONS: Please see past medical history. FAMILY HISTORY: No family history of ESRD. SOCIAL HISTORY: He lives in [place]. He is a retired concrete mixing truck driver. He is , no children. Education, high school. Smoked for 25 years, 1 pack a day. Alcohol, none. Status post blood transfusion. Status post IV heroin use. PHYSICAL EXAMINATION: VITAL SIGNS: Blood pressure is 165/86, heart rate 86, respiratory rate 16, temperature 98.4, and pulse ox 95% on room air. GENERAL: Awake, alert, comfortable, not in overt distress. SKIN: Adequate turgor. HEENT: He has a slightly pale conjunctivae. Anicteric sclerae. NECK: No neck mass. No carotid bruits. No JVD. CHEST: No deformities. LUNGS: Clear breath sounds. HEART: Normal sinus rhythm. No murmurs, gallops, or rubs. ABDOMEN: Globular, soft, nontender. No masses. Positive for PD catheter. EXTREMITIES: No edema, no deformities. MEDICATIONS: 1. Medications of December 02, 2019: 2. Geodon 20 mg I IM q.6 hours p.r.n. 3. Pravastatin 20 mg at bedtime. 4. Metoprolol tartrate 50 mg p.o. b.i.d. 5. Heparin drip as directed. LABORATORY DATA: Laboratories of December 02, 2019; white count 11.1, hemoglobin 10.8. Sodium 135, potassium 3.8, chloride 95, carbon dioxide 22, BUN 104, creatinine 12.87, glucose 143, calcium 8.1, AST 71, ALT 20, albumin 2.7. Ammonia level is 21. CK 764, troponin I is 2.261. IMAGIN. Chest x-ray within normal. 2. CT scan of the brain, no acute intracranial abnormality. 3. Mental status change-this could be drug-induced. 4. Imaging of the brain did not show any acute CVA with this patient. 5. Ammonia level is also within normal. The other possibility is that this patient may be uremic. For that reason, we will do an intense peritoneal dialysis with this patient. He will undergo peritoneal dialysis daily. Please note he has interrupted his peritoneal dialysis at home according to the . 6. Elevated troponin I, cardiology consult has been done. The patient being ruled out for GA. 7. Anemia, start Epogen 7500 units subcu every week. 8. ESRD. We will continue current CCPD regimen with this patient. Ultrafiltration only as tolerated. Overall, agree with current management. Job ID: [id number]
--- NOTE | 2019-12-03 00:30 | CON ---
DATE OF CONSULTATION: HISTORY OF PRESENT ILLNESS: The patient is an unfortunate 59-year-old gentleman with end-stage renal disease, who was admitted with altered mental status, was noted to have an elevated cardiac enzymes. The patient has no previous cardiac history. He has been on dialysis for the past 3 years. He also has a history of cirrhosis. The patient presented with altered mental status. He is unable to give a coherent history. The patient does deny having any chest discomfort or dyspnea. PAST MEDICAL HISTORY: 1. End-stage renal disease. 2. Cirrhosis. 3. Hepatitis C. PAST SURGICAL HISTORY: AV shunt, appendectomy, and shoulder surgery. SOCIAL HISTORY: Former smoker. ALLERGIES: NO KNOWN DRUG ALLERGIES. MEDICATIONS: 1. Trazodone 50 at bedtime. 2. Hydralazine 50 t.i.d. 3. Sertraline 100 b.i.d. 4. Metoprolol 50 b.i.d. 5. Citalopram daily. 6. Ciprofloxacin 250 b.i.d. 7. Norvasc 10 daily. 8. Alprazolam 1 tablet p.o. b.i.d. ALLERGIES: NO KNOWN DRUG ALLERGIES. REVIEW OF SYSTEMS: Unobtainable. PHYSICAL EXAMINATION: GENERAL: Confused gentleman with a blood pressure 165/86. NECK: No jugular venous distention. LUNGS: Clear to auscultation. HEART: Regular rate and rhythm. Normal S1, S2. 1/6 systolic murmur. ABDOMEN: Distended. EXTREMITIES: Showed no edema. SKIN: Showed multiple ecchymotic lesions. LABORATORY DATA: White blood cell count 11.1, hemoglobin 10.8, hematocrit 32.7, platelets were 310. Sodium was 135, potassium 3.8, chloride 95, bicarbonate 22 , BUN 104, creatinine 12. Troponin was 2.3. EKG revealed normal sinus rhythm, voltage criteria for left ventricular hypertrophy, and nonspecific T-wave abnormality. IMPRESSION: 1. Altered mental status. 2. Probable non ST elevation myocardial infarction. 3. Hypertension. 4. End-stage renal disease. 5. Cirrhosis. This gentleman presents with a non-Q-wave myocardial infarction. He has a mild elevation in his troponin level. He has marked altered mental status secondary probably to withdrawal from his anti-anxiety medication. From a cardiac standpoint, it is most appropriate to treat him with medical therapy. We will start the patient on aspirin. We will resume his beta nathan therapy. The patient has been started on heparin. We will add low-dose lipid lowering medication with his history of cirrhosis. We will follow this patient with you through his hospitalization. Job ID: [id number] [email or web address]
[2019-12-03] MEDS ORDERED: Heparin 10,000 UNITS/ 10 ML VIAL SLOW IVP SCH (01:00)
[2019-12-03] MEDS ORDERED: Heparin 25,000 units/D5W 500 ML IV SCH (01:00)
[2019-12-03 06:18] LABS: #Eosinphils 0.1 thou/uL (0.0-0.7); #Lymphocytes 0.6 thou/uL (1.20-3.40); #Monocytes 0.9 thou/uL (0.11-0.59); #Neutrophils 9.3 thou/uL (1.40-6.50); %Basophils 0.3 % (0.0-1.0); %Eosinophils 0.7 % (0.0-10.0); %Lymphocytes 5.3 % (21.0-51.0); %Monocytes 8.2 % (0.0-10.0); %Neutrophils 85.5 % (42.0-75.0); Hemoglobin 10.8 g/dL (14.0-18.0); Mean Corpuscular HGB CONC 31.3 g/dL (32.0-36.0); Mean Corpuscular Volume 99.3 fL (78.0-98.0); Mean Platelet Volume 7.9 fL (7.4-10.4); Platelet Count 261 thou/uL (130-400); RBC Distribution Width 13.8 % (11.5-14.5); Red Blood Cell (RBC) Count 3.48 mill/uL (4.70-6.10); White Blood Cell (WBC) Count 10.9 thou/uL (4.8-10.8)
[2019-12-03 06:38] LABS: Anion Gap 18 mmol/L (10-20); BUN (Urea Nitrogen) 92 mg/dL (8.4-25.7); Calc. Creatinine Clearance 6 mL/min (70-130); Calcium 8.1 mg/dL (7.8-10.44); Carbon Dioxide 24 mmol/L (23-31); Chloride 96 mmol/L (98-107); Estimated GFR-MDRD 5; Glucose 103 mg/dL (80-115); Potassium 3.1 mmol/L (3.5-5.1); Sodium 135 mmol/L (136-145)
[2019-12-03 06:41] LABS: Phosphorus 9.8 mg/dL (2.3-4.7)
[2019-12-03] MEDS: Metoprolol Tartrate 50 MG TAB PO SCH (09:31)
[2019-12-03] MEDS: Aspirin 325 MG TAB PO SCH (09:32)
--- NOTE | 2019-12-03 09:50 | PRG ---
DATE OF SERVICE: 12/03/2019 SUBJECTIVE: Mr. Jones is a 59-year-old male with ESRD-currently on peritoneal dialysis. He was admitted due to confusion. He has also been noted to be very restless in his sleep. Adjustment with his benzodiazepine was made and a tapering dose has been done by his PCP. He is also being given Geodon p.r.n. for agitation. This morning, the patient is feeling better. Prior to this hospitalization, he had a PD leak which was repaired by Dr. Samaniego. In addition, he has repair of his AV fistula. No other complaints today. No chest pain or shortness of breath. OBJECTIVE: VITAL SIGNS: Blood pressure 102/71, heart rate 73, respiratory rate 14, temperature 98.3, and pulse ox 94% on room air. GENERAL: Awake, alert, comfortable, not in overt distress. SKIN: Adequate turgor. HEENT: Pinkish conjunctivae. Anicteric sclerae. NECK: No neck mass. No carotid bruits. No JVD. CHEST: No deformities. LUNGS: Clear breath sounds. HEART: Normal sinus rhythm. No murmur. No gallops. No rubs. ABDOMEN: Globular. Soft. Nontender. No masses. EXTREMITIES: No edema. No deformities. Positive for PD catheter. MEDICATIONS: Medications of December 03, 2019, reviewed. LABORATORY DATA: Laboratories of December 03, 2019; white count 10.9, hemoglobin 10.8, sodium 135, potassium 3.1, chloride 96, carbon dioxide 24, BUN 92, creatinine 11.24, phosphorus 9.8, calcium 8.1, PTH 808. Elevated cardiac enzymes-Cardiology has evaluated. Recommendation is a conservative management. Please note, this patient had recent cardiac workup at the [facility] and he was cleared at that time. ASSESSMENT AND PLAN: 1. End-stage renal disease, stable. We are continuing current CCPD regimen. He is tolerating said treatment. No changes will be made with the current peritoneal dialysis. He is tolerating ultrafiltration. 2. Anemia. We have started him back on a weekly Epogen regimen. 3. Hyperphosphatemia. Start Renvela 800 mg 3 tablets t.i.d. with meals. 4. Secondary hyperparathyroidism, calcitriol 0.25 mcg tablet daily was started. 5. Elevated troponin I, conservative management. Cardiology is following. 6. Confusion, much improved. 7. Agree with current management. Job ID: [id number]
[2019-12-03] MEDS ORDERED: Heparin 1,000 UNITS/ML (10 ml) 6,000 UNITS in PERITON.DIALYSIS 7-2.5 % DEXTR 6,000 ML FS PRN (09:54)
[2019-12-03] MEDS: Calcitriol 0.25 MCG CAP PO SCH (10:00)
[2019-12-03 12:34] VITALS: BMI 21.7
[2019-12-03] MEDS: Sevelamer Carbonate 800 MG TAB PO SCH ×2 (13:27→18:07)
--- NOTE | 2019-12-03 13:44 | PDOC.HOSPP ---
- Subjective Encounter Date: 12/03/19 Encounter Time: 10:15 Subjective: awake, responds well to verbal stimuli at bedside has myoclonic jerks, tries to fall asleep - Objective Vital Signs & Weight: Vital Signs (12 hours) Temp Pulse Resp BP BP Pulse Ox 12/03/19 12:00 97.3 F L 64 16 139/82 97 12/03/19 08:00 97.4 F L 71 16 128/75 98 12/03/19 03:26 98.3 F 73 14 102/71 94 L Weight Admit Weight 147 lb 11.355 oz Weight 143 lb 4.807 oz I&O: 12/02/19 12/03/19 12/04/19 06:59 06:59 06:59 Intake Total 240 Output Total 100 Balance 140 Result Diagrams: 12/03/19 06:07 12/03/19 06:07 Hospitalist ROS - Medication Medications: Active Medications Generic Name Dose Route Start Last Admin Trade Name Freq PRN Reason Stop Dose Admin Aspirin 325 mg 12/03/19 09:00 12/03/19 09:32 Aspirin PO 325 mg DAILY MARCOS Administration Calcitriol 0.25 mcg 12/03/19 09:00 12/03/19 10:00 Rocaltrol PO 0.25 mcg DAILY MARCOS Administration Epoetin Dre-epbx 7,500 unit 12/02/19 18:00 12/02/19 20:22 Retacrit SC 7,500 unit Q7D MARCOS Administration Heparin Sodium (Porcine) 0 units 12/03/19 01:00 12/03/19 06:34 Heparin 1,000 Units/Ml (10 Ml) SLOW IVP 12/03/19 18:00 2,010 unit WILLCALL MARCOS Administration Pravastatin Sodium 20 mg 12/02/19 21:00 12/02/19 20:21 Pravachol PO 20 mg HS MARCOS Administration Sevelamer Carbonate 2,400 mg 12/03/19 12:00 12/03/19 13:27 Renvela PO 2,400 mg TID-WM MARCOS Administration Ziprasidone 20 mg 12/02/19 16:35 12/02/19 22:36 Geodon IM 20 mg Q6H PRN Administration Agitation - Exam Eye: PERRL, anicteric sclera ENT: no oropharyngeal lesions, moist mucosa Neck: supple, no JVD Heart: RRR, no murmur Respiratory: no wheezes, no rales Gastrointestinal: soft, non-tender, non-distended, normal bowel sounds Gastrointestinal - other findings: pd cath+ Extremities: no clubbing, no edema Neurological: cranial nerve grossly intact, no focal deficits Hosp A/P (1) Uremia Code(s): N19 - UNSPECIFIED KIDNEY FAILURE Status: Acute (2) ESRD (end stage renal disease) on dialysis Code(s): N18.6 - END STAGE RENAL DISEASE; Z99.2 - DEPENDENCE ON RENAL DIALYSIS Status: Chronic (3) Cardiomyopathy Code(s): I42.9 - CARDIOMYOPATHY, UNSPECIFIED Status: Acute Qualifiers: Cardiomyopathy type: unspecified Qualified Code(s): I42.9 - Cardiomyopathy , unspecified (4) Volume overload Code(s): E87.70 - FLUID OVERLOAD, UNSPECIFIED Status: Acute (5) Myoclonic jerking Code(s): G25.3 - MYOCLONUS Status: Acute (6) Acute metabolic encephalopathy Code(s): G93.41 - METABOLIC ENCEPHALOPATHY Status: Acute (7) HTN (hypertension) Code(s): I10 - ESSENTIAL (PRIMARY) HYPERTENSION Status: Chronic Qualifiers: Hypertension type: essential hypertension Qualified Code(s): I10 - Essential (primary) hypertension (8) NSTEMI (non-ST elevated myocardial infarction) Code(s): I21.4 - NON-ST ELEVATION (NSTEMI) MYOCARDIAL INFARCTION Status: Acute (9) Anemia of renal disease Code(s): D63.1 - ANEMIA IN CHRONIC KIDNEY DISEASE Status: Chronic - Plan is on asp, heparin drip till evening, pravachol, lopressor bid echo shows ef of 35% he previously had normal w/u in [place] prior to being on transplant list ( stress test and echo per patient, he is not sure if had cath?) d/w , he will have HD x 2 sessions if his fistula works. d/w at bedside hep C was treated and is cured per , but patient still has cirrhosis hemostable will f/u
[2019-12-03] MEDS: Carvedilol 6.25 MG TAB PO SCH (17:07)
[2019-12-03] MEDS: Ziprasidone 20 MG VIAL IM PRN (21:20)
[2019-12-03] MEDS: Sterile Water 10 ML VIAL FS PRN (21:20)
[2019-12-03] MEDS: Pravastatin Sodium 20 MG TAB PO SCH (21:21)
[2019-12-03] MEDS: Lisinopril 2.5 MG TAB PO SCH (21:21)
[2019-12-04 04:54] LABS: #Eosinphils 0.1 thou/uL (0.0-0.7); #Lymphocytes 0.7 thou/uL (1.20-3.40); #Neutrophils 9.4 thou/uL (1.40-6.50); %Basophils 0.1 % (0.0-1.0); %Lymphocytes 6.1 % (21.0-51.0); %Neutrophils 83.9 % (42.0-75.0); Hemoglobin 11.4 g/dL (14.0-18.0); Mean Corpuscular HGB CONC 32.8 g/dL (32.0-36.0); Mean Corpuscular Volume 97.8 fL (78.0-98.0); Mean Platelet Volume 8.2 fL (7.4-10.4); Platelet Count 307 thou/uL (130-400); RBC Distribution Width 13.5 % (11.5-14.5); Red Blood Cell (RBC) Count 3.56 mill/uL (4.70-6.10); White Blood Cell (WBC) Count 11.2 thou/uL (4.8-10.8)
[2019-12-04 05:27] LABS: Anion Gap 17 mmol/L (10-20); BUN (Urea Nitrogen) 84 mg/dL (8.4-25.7); Calc. Creatinine Clearance 7 mL/min (70-130); Carbon Dioxide 23 mmol/L (23-31); Chloride 96 mmol/L (98-107); Estimated GFR-MDRD 5; Glucose 98 mg/dL (80-115); Sodium 133 mmol/L (136-145)
[2019-12-04] MEDS: Sevelamer Carbonate 800 MG TAB PO SCH ×3 (08:36→17:53)
[2019-12-04] MEDS: Calcitriol 0.25 MCG CAP PO SCH (08:36)
[2019-12-04] MEDS: Aspirin 325 MG TAB PO SCH (08:36)
[2019-12-04] MEDS: Carvedilol 6.25 MG TAB PO SCH ×2 (10:54→17:50)
[2019-12-04] MEDS: Lisinopril 2.5 MG TAB PO SCH (10:57)
[2019-12-04] MEDS ORDERED: Potassium Chloride 20 MEQ TAB PO SCH (11:00)
--- NOTE | 2019-12-04 11:24 | PRG ---
DATE OF SERVICE: 12/04/2019 SERVICE: Renal Medicine. SUBJECTIVE: Mr. Jones is a 59-year-old male, who was initially admitted for mental status change. He was noted by his hospitalist to be having myoclonic jerks. The possibilities are to dialyze with the current PD regimen and due to possibility of uremia, consider HD, For this reason, we will try to do hemodialysis today. My plan is to at least do a 2-hour hemodialysis today, then sequentially increase it to 1 hour for the next three days. We will hold off the PD. He still with decreased appetite and decreased energy level. He denies any chest pain or shortness of breath. OBJECTIVE: VITAL SIGNS: Blood pressure 109/74, heart rate 76, respiratory rate 16, temperature 98.3, pulse ox 100%. GENERAL: The patient is awake, alert, comfortable, not in distress. SKIN: Adequate turgor. HEENT: Pinkish conjunctivae. Anicteric sclerae. NECK: No neck mass. No carotid bruits. No JVD. CHEST: No deformities. LUNGS: Clear breath sounds. HEART: Normal sinus rhythm. No murmurs. No gallops. No rubs. ABDOMEN: Globular, soft, nontender. No masses. Positive for PD catheter. EXTREMITIES: No edema. No deformities. MEDICATIONS: Medications of December 04, 2019, was reviewed. LABORATORY DATA: Laboratories of December 04, 2019; white count 11.2, hemoglobin 11.4. Sodium 133, potassium 3, chloride 96, carbon dioxide 23, BUN 84, creatinine 10.28, calcium 8. PTH 808. ASSESSMENT AND PLAN: 1. Secondary hyperparathyroidism. Calcitriol has been initiated. 2. Hyperphosphatemia-currently on Renvela 800 mg 3 tablets t.i.d. with meals. 3. End-stage renal disease-the patient may be clinically uremic and under dialyzed with the current PD regimen. My plan is to convert him temporarily to hemodialysis. We will attempt to see if we could use the AV fistula, which was revised by Dr. Samaniego recently. 4. Anxiety-we will resume back Xanax at the smallest dose of 0.125 mg tablet at bedtime. 5. Anemia, stable, currently on weekly Epogen. 6. Hypokalemia. We will give potassium chloride 40 mEq one tab now. Please note, we will do hemodialysis for 2 hours today, then 3 hours Friday, then 4 hours Friday. We will then resume back his regular PD. Job ID: [id number]
[2019-12-04] MEDS: Ondansetron PF 4 MG/2 ML Vial IVP PRN ×2 (11:52→19:34)
--- NOTE | 2019-12-04 12:44 | PDOC.HOSPP ---
- Subjective Encounter Date: 12/04/19 Encounter Time: 08:30 Subjective: no sob or palpitations sister at bedside says he got anxious last night and got geodon - Objective Vital Signs & Weight: Vital Signs (12 hours) Temp Pulse Resp BP BP Pulse Ox 12/04/19 11:49 98.0 F 76 17 119/69 100 12/04/19 10:02 109/74 12/04/19 08:32 98.3 F 76 16 107/65 100 12/04/19 08:30 100 12/04/19 03:16 98 F 75 17 100/55 L 97 Weight Admit Weight 147 lb 11.355 oz Weight 143 lb 4.807 oz I&O: 12/03/19 12/04/19 12/05/19 06:59 06:59 07:59 Intake Total 240 1450 Output Total 100 475 Balance 140 975 Result Diagrams: 12/04/19 04:43 12/04/19 04:43 Hospitalist ROS - Medication Medications: Active Medications Generic Name Dose Route Start Last Admin Trade Name Francisco Javierq PRN Reason Stop Dose Admin Aspirin 325 mg 12/03/19 09:00 12/04/19 08:36 Aspirin PO 325 mg DAILY MARCOS Administration Calcitriol 0.25 mcg 12/03/19 09:00 12/04/19 08:36 Rocaltrol PO 0.25 mcg DAILY MARCOS Administration Carvedilol 6.25 mg 12/03/19 17:00 12/04/19 10:54 Coreg PO Not Given BID-WM MARCOS Epoetin Dre-epbx 7,500 unit 12/02/19 18:00 12/02/19 20:22 Retacrit SC 7,500 unit Q7D MARCOS Administration Lisinopril 2.5 mg 12/03/19 21:00 12/04/19 10:57 Zestril PO Not Given BID MARCOS Ondansetron HCl 4 mg 12/04/19 11:28 12/04/19 11:52 Zofran IVP 4 mg Q6H PRN Administration Nausea/Vomiting Potassium Chloride 40 meq 12/04/19 11:00 12/04/19 11:11 K-Dur PO 12/04/19 14:00 40 meq NOW MARCOS Administration Pravastatin Sodium 20 mg 12/02/19 21:00 12/03/19 21:21 Pravachol PO 20 mg HS MARCOS Administration Sevelamer Carbonate 2,400 mg 12/03/19 12:00 12/04/19 11:24 Renvela PO Not Given TID-WM MARCOS Sterile Water 1.2 ml 12/02/19 16:52 12/03/19 21:20 Water For Injection FS 1.2 ml PRN PRN Administration RECONSTITUTION - Exam General Appearance: awake alert Eye: PERRL, anicteric sclera ENT: no oropharyngeal lesions, moist mucosa Neck: supple, no JVD Heart: RRR, no murmur Respiratory: no wheezes, no rales Gastrointestinal: soft, non-tender, non-distended, normal bowel sounds Extremities: no cyanosis, no edema Neurological: cranial nerve grossly intact, no focal deficits Psychiatric: A&O x 3 Hosp A/P (1) Uremia Code(s): N19 - UNSPECIFIED KIDNEY FAILURE Status: Acute (2) ESRD (end stage renal disease) on dialysis Code(s): N18.6 - END STAGE RENAL DISEASE; Z99.2 - DEPENDENCE ON RENAL DIALYSIS Status: Chronic (3) Cardiomyopathy Code(s): I42.9 - CARDIOMYOPATHY, UNSPECIFIED Status: Acute Qualifiers: Cardiomyopathy type: unspecified Qualified Code(s): I42.9 - Cardiomyopathy , unspecified (4) Volume overload Code(s): E87.70 - FLUID OVERLOAD, UNSPECIFIED Status: Acute (5) Myoclonic jerking Code(s): G25.3 - MYOCLONUS Status: Acute (6) Acute metabolic encephalopathy Code(s): G93.41 - METABOLIC ENCEPHALOPATHY Status: Acute (7) HTN (hypertension) Code(s): I10 - ESSENTIAL (PRIMARY) HYPERTENSION Status: Chronic Qualifiers: Hypertension type: essential hypertension Qualified Code(s): I10 - Essential (primary) hypertension (8) NSTEMI (non-ST elevated myocardial infarction) Code(s): I21.4 - NON-ST ELEVATION (NSTEMI) MYOCARDIAL INFARCTION Status: Acute (9) Anemia of renal disease Code(s): D63.1 - ANEMIA IN CHRONIC KIDNEY DISEASE Status: Chronic - Plan is on asp, pravachol, lopressor bid echo shows ef of 35% he previously had normal w/u in [place] prior to being on transplant list ( stress test and echo per patient, he is not sure if had cath?) d/w yesterday, he will have HD x 2 sessions if his fistula works ( recently placed). d/w sister at bedside hep C was treated and is cured per , but patient still has cirrhosis hemostable was earlier nauseous not anymore
[2019-12-04] MEDS: Pravastatin Sodium 20 MG TAB PO SCH (19:35)
--- NOTE | 2019-12-04 20:41 | PDOC.CPN ---
- Subjective Date: 12/04/19 Time: 20:40 Interval history: He is doing well. No chest pain. - Review of Systems General: denies: fever/chills, weight/appetite/sleep changes, night sweats, fatigue Respiratory: reports: shortness of breath. denies: cough, congestion, exercise intolerance Cardiovascular: denies: chest pain, palpitation, edema, paroxysmal nocturnal dyspnea, orthopnea Gastrointestinal: denies: nausea, vomiting, diarrhea, constipation, abd pain, GI bleeding Musculoskeletal: denies: pain, tenderness, stiffness, swelling, arthritis/ arthralgias Neurological: denies: numbness, syncope, seizure, weakness - Objective Allergies/Adverse Reactions: Allergies Allergy/AdvReac Type Severity Reaction Status Date / Time No Known Allergies Allergy Verified 12/02/19 18:10 Visit Medications: Current Medications Aspirin (Aspirin) 325 mg PO DAILY [facility] Last Admin: 12/04/19 08:36 Dose: 325 mg Calcitriol (Rocaltrol) 0.25 mcg PO DAILY [facility] Last Admin: 12/04/19 08:36 Dose: 0.25 mcg Epoetin Dre-epbx (Retacrit) 7,500 unit SC Q7D [facility] Last Admin: 12/02/19 20:22 Dose: 7,500 unit Heparin Sodium (Porcine) 6,000 units/ Peritoneal Dialysis Solution 6,006 mls @ 0 mls/hr FS INF PRN PRN Reason: DIALYSIS Ondansetron HCl (Zofran) 4 mg IVP Q6H PRN PRN Reason: Nausea/Vomiting Last Admin: 12/04/19 19:34 Dose: 4 mg Ondansetron HCl (Zofran) 4 mg SLOW IVP Q6H PRN PRN Reason: Nausea/Vomiting Pravastatin Sodium (Pravachol) 20 mg PO HS [facility] Last Admin: 12/04/19 19:35 Dose: 20 mg Quetiapine Fumarate (Seroquel) 25 mg PO [facility] Last Admin: 12/04/19 19:35 Dose: 25 mg Sevelamer Carbonate (Renvela) 2,400 mg PO [facility] Last Admin: 12/04/19 17:53 Dose: Not Given Sodium Chloride (Flush - Normal Saline) 10 ml IVF Q12HR [facility] Last Admin: 12/04/19 19:35 Dose: 10 ml Sodium Chloride (Flush - Normal Saline) 10 ml IVF PRN PRN PRN Reason: Saline Flush Sterile Water (Water For Injection) 1.2 ml FS PRN PRN PRN Reason: RECONSTITUTION Last Admin: 12/03/19 21:20 Dose: 1.2 ml Vital Signs & Weight: Vital Signs Temp Pulse Resp BP BP Pulse Ox 12/04/19 17:30 85 109/69 12/04/19 15:24 98.2 F 86 16 99/67 96 12/04/19 11:49 98.0 F 76 17 119/69 100 12/04/19 10:02 109/74 Admit Weight 147 lb 11.355 oz Weight 143 lb 4.807 oz - Physical Exam General: alert & oriented x3 HEENT: mucus membranes moist Neck: supple neck Cardiac: regular rate and rhythm Lungs: clear to auscultation Neuro: grossly intact Abdomen: active bowel sounds Extremities: no edema Skin: clear Musculoskeletal: no pain - Labs Result Diagrams: 12/04/19 04:43 12/04/19 04:43 Troponin/CKMB CK-MB (CK-2) 25.3 ng/mL (0-6.6) H* 12/02/19 16:31 Troponin I 2.261 ng/mL (< 0.028) H* 12/02/19 16:31 - Telemetry Sinus rhythms and dysrhythmias: sinus rhythm - Assessment/Plan Assessment/Plan: 1. NSTEIM. 2. Dilated CM EF at 35-40% 3. ESRD 4. Cirrhosis 5. Hypokalemia PLAN: - Continue medical therapy. - No angina.
[2019-12-04] MEDS ORDERED: ALPRAZolam 0.25 MG TAB PO SCH (21:00)
[2019-12-05 04:34] LABS: #Lymphocytes 0.6 thou/uL (1.20-3.40); #Monocytes 0.9 thou/uL (0.11-0.59); #Neutrophils 13.3 thou/uL (1.40-6.50); %Basophils 0.1 % (0.0-1.0); %Eosinophils 0.1 % (0.0-10.0); %Lymphocytes 3.8 % (21.0-51.0); %Monocytes 6.1 % (0.0-10.0); Hemoglobin 11.4 g/dL (14.0-18.0); Mean Corpuscular HGB CONC 32.4 g/dL (32.0-36.0); Mean Corpuscular Hemoglobin 31.9 pg (27.0-31.0); Mean Corpuscular Volume 98.6 fL (78.0-98.0); Mean Platelet Volume 8.2 fL (7.4-10.4); Platelet Count 251 thou/uL (130-400); RBC Distribution Width 13.6 % (11.5-14.5); Red Blood Cell (RBC) Count 3.56 mill/uL (4.70-6.10); White Blood Cell (WBC) Count 14.8 thou/uL (4.8-10.8)
[2019-12-05 04:50] LABS: Anion Gap 18 mmol/L (10-20); BUN (Urea Nitrogen) 66 mg/dL (8.4-25.7); Calc. Creatinine Clearance 8 mL/min (70-130); Calcium 8.3 mg/dL (7.8-10.44); Carbon Dioxide 21 mmol/L (23-31); Chloride 98 mmol/L (98-107); Estimated GFR-MDRD 6; Glucose 129 mg/dL (80-115); Potassium 3.7 mmol/L (3.5-5.1); Sodium 133 mmol/L (136-145)
[2019-12-05] MEDS: Sevelamer Carbonate 800 MG TAB PO SCH ×3 (09:09→17:52)
--- NOTE | 2019-12-05 10:09 | PRG ---
DATE OF SERVICE: 12/05/2019 SUBJECTIVE: Mr. Jones is a 59-year-old male with ESRD and was initially admitted for mental status change. His mentation is much improved. I have converted him temporarily from peritoneal dialysis to hemodialysis due to what I feel could be his uremic signs and symptoms. He underwent a 2-hour hemodialysis yesterday without any difficulty. My plan is to do a 3-hour hemodialysis today, then a 4-hour hemodialysis. Once I have done this, I will probably convert him back to peritoneal dialysis early next week. No other complaints today. Still with decreased appetite. OBJECTIVE: VITAL SIGNS: Blood pressure 144/79, heart rate 98, respiratory rate 18, temperature 97.1, and pulse ox 100% on room air. GENERAL: Awake, alert, and comfortable, not in distress. SKIN: Adequate turgor. HEENT: He has a pinkish conjunctivae. Anicteric sclerae. NECK: No neck mass. No carotid bruits. No JVD. CHEST: No deformities. LUNGS: Clear breath sounds. HEART: Normal sinus rhythm. No murmurs. No gallops. No rubs. ABDOMEN: Globular, soft, and nontender. No masses. EXTREMITIES: No edema. No deformities. MEDICATIONS: Medications of December 05, 2019, were reviewed. LABORATORY DATA: Laboratories of December 05, 2019; sodium 133, potassium 3.7, chloride 98, carbon dioxide 21, BUN 66, creatinine 9.24, and hemoglobin 11.4. ASSESSMENT AND PLAN: 1. End-stage renal disease- the patient converted to hemodialysis. We will do a 3-hour hemodialysis today and 4 hours tomorrow and early next week convert back to PD. His clinical uremia is actually improved. 2. Anemia, continuing weekly Epogen. 3. Renal osteodystrophy-phosphate binders have been started with this patient as well as calcitriol. 4. Mental status change, much improved. Overall agree with current management. Recheck CBC and basic metabolic in a.m. Job ID: [id number]
--- NOTE | 2019-12-05 12:07 | PDOC.HOSPP ---
- Subjective Encounter Date: 12/05/19 Encounter Time: 10:15 Subjective: is getting HD, a bit anxious still has jerking movements responds to verbal stimuli slept well last night with seroquel per staff - Objective Vital Signs & Weight: Vital Signs (12 hours) Temp Pulse Resp BP Pulse Ox 12/05/19 07:46 97.1 F L 98 18 144/79 H 100 12/05/19 03:12 98.5 F 89 18 117/59 L 98 Weight Admit Weight 147 lb 11.355 oz Weight 143 lb 4.807 oz I&O: 12/04/19 12/05/19 12/06/19 05:59 06:59 06:59 Intake Total Output Total Balance Result Diagrams: 12/05/19 04:10 12/05/19 04:10 Hospitalist ROS - Medication Medications: Active Medications Generic Name Dose Route Start Last Admin Trade Name Freq PRN Reason Stop Dose Admin Aspirin 325 mg 12/03/19 09:00 12/04/19 08:36 Aspirin PO 325 mg DAILY MARCOS Administration Calcitriol 0.25 mcg 12/03/19 09:00 12/04/19 08:36 Rocaltrol PO 0.25 mcg DAILY MARCOS Administration Epoetin Dre-epbx 7,500 unit 12/02/19 18:00 12/02/19 20:22 Retacrit SC 7,500 unit Q7D MARCOS Administration Ondansetron HCl 4 mg 12/04/19 11:28 12/04/19 19:34 Zofran IVP 4 mg Q6H PRN Administration Nausea/Vomiting Pravastatin Sodium 20 mg 12/02/19 21:00 12/04/19 19:35 Pravachol PO 20 mg HS MARCOS Administration Quetiapine Fumarate 25 mg 12/04/19 21:00 12/04/19 19:35 Seroquel PO 25 mg HS MARCOS Administration Sevelamer Carbonate 2,400 mg 12/03/19 12:00 12/05/19 09:09 Renvela PO 2,400 mg TID-WM MARCOS Administration Sodium Chloride 10 ml 12/04/19 21:00 12/05/19 09:10 Flush - Normal Saline IVF 10 ml Q12HR MARCOS Administration Sterile Water 1.2 ml 12/02/19 16:52 12/03/19 21:20 Water For Injection FS 1.2 ml PRN PRN Administration RECONSTITUTION - Exam General Appearance: awake alert Eye: PERRL, anicteric sclera ENT: no oropharyngeal lesions, moist mucosa Neck: supple, no JVD Heart: RRR, no murmur Respiratory: no wheezes, no rales Gastrointestinal: soft, non-tender, non-distended, normal bowel sounds Gastrointestinal - other findings: PD cath+ Extremities: no cyanosis, no edema Extremities - other findings: echymosis + Neurological: cranial nerve grossly intact, no focal deficits Hosp A/P (1) Uremia Code(s): N19 - UNSPECIFIED KIDNEY FAILURE Status: Acute (2) ESRD (end stage renal disease) on dialysis Code(s): N18.6 - END STAGE RENAL DISEASE; Z99.2 - DEPENDENCE ON RENAL DIALYSIS Status: Chronic (3) Cardiomyopathy Code(s): I42.9 - CARDIOMYOPATHY, UNSPECIFIED Status: Acute Qualifiers: Cardiomyopathy type: dilated Qualified Code(s): I42.0 - Dilated cardiomyopathy (4) Volume overload Code(s): E87.70 - FLUID OVERLOAD, UNSPECIFIED Status: Acute (5) Myoclonic jerking Code(s): G25.3 - MYOCLONUS Status: Acute (6) Acute metabolic encephalopathy Code(s): G93.41 - METABOLIC ENCEPHALOPATHY Status: Acute (7) HTN (hypertension) Code(s): I10 - ESSENTIAL (PRIMARY) HYPERTENSION Status: Chronic Qualifiers: Hypertension type: essential hypertension Qualified Code(s): I10 - Essential (primary) hypertension (8) NSTEMI (non-ST elevated myocardial infarction) Code(s): I21.4 - NON-ST ELEVATION (NSTEMI) MYOCARDIAL INFARCTION Status: Resolved (9) Anemia of renal disease Code(s): D63.1 - ANEMIA IN CHRONIC KIDNEY DISEASE Status: Chronic - Plan is on asp, pravachol, no BB or justin due to low BP and esrd. echo shows ef of 35% he previously had normal w/u in [place] prior to being on transplant list ( stress test and echo per patient, he is not sure if had cath?) d/w yesterday, he will have HD x 2 sessions (recently placed), tolerating HD and his fistula is working well. d/w sister at bedside hep C was treated and is cured per , but patient still has cirrhosis hemostable will add am dose of seroquel in addition to night dose. family does not want xanax or ativan (makes him more agitated or jittery). will obtain MRI brain to make sure no cva in the brain stem area or BG, initial CT was -ve.
[2019-12-05] MEDS ORDERED: Sterile Water 10 ML VIAL FS PRN (12:22)
[2019-12-05] MEDS ORDERED: Ziprasidone 20 MG VIAL IM SCH (12:30)
[2019-12-05] MEDS: Sterile Water 10 ML VIAL FS PRN (12:44)
[2019-12-05] MEDS: Calcitriol 0.25 MCG CAP PO SCH (14:14)
[2019-12-05] MEDS: Aspirin 325 MG TAB PO SCH (14:15)
--- NOTE | 2019-12-05 17:50 | PDOC.CPN ---
- Subjective Date: 12/05/19 Time: 17:48 Interval history: More confused today. No chest pain. - Review of Systems ROS unobtainable: due to mental status - Objective Allergies/Adverse Reactions: Allergies Allergy/AdvReac Type Severity Reaction Status Date / Time No Known Allergies Allergy Verified 12/02/19 18:10 Visit Medications: Current Medications Aspirin (Aspirin) 325 mg PO DAILY [facility] Last Admin: 12/05/19 14:15 Dose: 325 mg Calcitriol (Rocaltrol) 0.25 mcg PO DAILY [facility] Last Admin: 12/05/19 14:14 Dose: 0.25 mcg Epoetin Dre-epbx (Retacrit) 7,500 unit SC Q7D [facility] Last Admin: 12/02/19 20:22 Dose: 7,500 unit Heparin Sodium (Porcine) 6,000 units/ Peritoneal Dialysis Solution 6,006 mls @ 0 mls/hr FS INF PRN PRN Reason: DIALYSIS Ondansetron HCl (Zofran) 4 mg SLOW IVP Q6H PRN PRN Reason: Nausea/Vomiting Pravastatin Sodium (Pravachol) 20 mg PO [facility] Last Admin: 12/04/19 19:35 Dose: 20 mg Quetiapine Fumarate (Seroquel) 25 mg PO [facility] Last Admin: 12/04/19 19:35 Dose: 25 mg Quetiapine Fumarate (Seroquel) 25 mg PO DAILY [facility] Sevelamer Carbonate (Renvela) 2,400 mg PO [facility]ID[facility] Last Admin: 12/05/19 15:14 Dose: 2,400 mg Sodium Chloride (Flush - Normal Saline) 10 ml IVF Q12HR [facility] Last Admin: 12/05/19 09:10 Dose: 10 ml Sodium Chloride (Flush - Normal Saline) 10 ml IVF PRN PRN PRN Reason: Saline Flush Sterile Water (Water For Injection) 1.2 ml FS PRN PRN PRN Reason: RECONSTITUTION Last Admin: 12/05/19 12:44 Dose: 1.2 ml Vital Signs & Weight: Vital Signs Temp Pulse Resp BP Pulse Ox 12/05/19 15:59 98.2 F 109 H 16 106/62 98 12/05/19 13:43 98.5 F 118 H 18 103/67 98 12/05/19 07:46 97.1 F L 98 18 144/79 H 100 Admit Weight 147 lb 11.355 oz Weight 143 lb 4.807 oz - Physical Exam General: no apparent distress HEENT: normocephaly Neck: supple neck Cardiac: regular rate and rhythm Lungs: clear to auscultation Neuro: no lateralizing findings Abdomen: active bowel sounds Extremities: no edema Skin: clear Musculoskeletal: no pain - Labs Result Diagrams: 12/05/19 04:10 12/05/19 04:10 Troponin/CKMB CK-MB (CK-2) 25.3 ng/mL (0-6.6) H* 12/02/19 16:31 Troponin I 2.261 ng/mL (< 0.028) H* 12/02/19 16:31 - Telemetry Sinus rhythms and dysrhythmias: sinus rhythm - Assessment/Plan Assessment/Plan: 1. NSTEIM. 2. Dilated CM EF at 35-40% 3. ESRD 4. Cirrhosis 5. Hypokalemia PLAN: - Continue medical therapy. - No angina. - Will get ammonia level.
[2019-12-05] MEDS: Pravastatin Sodium 20 MG TAB PO SCH (19:55)
[2019-12-06 04:46] LABS: Anion Gap 15 mmol/L (10-20); BUN (Urea Nitrogen) 39 mg/dL (8.4-25.7); Calc. Creatinine Clearance 10 mL/min (70-130); Calcium 8.7 mg/dL (7.8-10.44); Carbon Dioxide 27 mmol/L (23-31); Chloride 97 mmol/L (98-107); Estimated GFR-MDRD 8; Glucose 107 mg/dL (80-115); Potassium 4.1 mmol/L (3.5-5.1); Sodium 135 mmol/L (136-145)
[2019-12-06 04:52] LABS: Band 3 % (5-11); Hemoglobin 11.6 g/dL (14.0-18.0); Hypochromia SLIGHT = 6-15 cells (100X) (0-5/hpf); Lymphocytes 4 % (21-51); MDiff Complete? YES; Mean Corpuscular HGB CONC 32.3 g/dL (32.0-36.0); Mean Corpuscular Hemoglobin 31.8 pg (27.0-31.0); Mean Corpuscular Volume 98.3 fL (78.0-98.0); Mean Platelet Volume 8.1 fL (7.4-10.4); Monocytes 3 % (0-10); Neutrophil 90 % (42-75); Platelet Count 208 thou/uL (130-400); Platelet Morphology Comment Appears Adequate; RBC Distribution Width 13.8 % (11.5-14.5); Red Blood Cell (RBC) Count 3.65 mill/uL (4.70-6.10); White Blood Cell (WBC) Count 19.6 thou/uL (4.8-10.8)
[2019-12-06] MEDS ORDERED: cefTRIAXone\\ROCEPHIN 1 GM in Sodium Chloride 0.9% 100 ML IVPB SCH (09:00)
--- NOTE | 2019-12-06 09:10 | PRG ---
DATE OF SERVICE: 12/06/2019 SERVICE: Renal Medicine. SUBJECTIVE: Mr. Jones is a 59-year-old male, who has ESRD, who was admitted for mental status change. Mentation is slightly improved. He is still having severe agitation. He had to be given some sedation yesterday due to the fact he was very restless with dialysis. He is currently undergoing dialysis today. He has some restlessness. No complaints of chest pain or shortness of breath. OBJECTIVE: VITAL SIGNS: Blood pressure 136/83, heart rate 99, respiratory rate 16, temperature 98.2, and pulse ox 100%. GENERAL: The patient is awake, comfortable, not in overt distress. SKIN: Adequate turgor. HEENT: He has a slightly pale conjunctivae. Anicteric sclerae. NECK: No neck mass. No carotid bruits. No JVD. CHEST: No deformities. LUNGS: Clear breath sounds. No wheezing. No crackles. HEART: Normal sinus rhythm. No murmurs. No gallops. No rubs. ABDOMEN: Globular, soft, and nontender. No masses. Positive for PD catheter. EXTREMITIES: No edema. MEDICATIONS: Medications of December 06, 2019, were reviewed. LABORATORY DATA: Laboratories of December 06, 2019; white count 19.6, hemoglobin 11.6. Sodium 135, potassium 4.1, chloride 97, carbon dioxide 27, BUN 39, creatinine 6.98, glucose 107, and calcium 8.7. Ammonia is 29. ASSESSMENT AND PLAN: 1. Agitation - secondary to a possible metabolic encephalopathy. Continue supportive care. Currently, on Seroquel. 2. Anemia, on weekly Epogen. 3. End-stage renal disease - currently undergoing hemodialysis. My plan is to do a 4-hour hemodialysis today. There is significant improvement in his chemistries. My plan is to resume peritoneal dialysis tomorrow night using a 10-hour PD time treatment. We will be using a 1.5% PD solution. Continue supportive care. Job ID: [id number] [facility]
[2019-12-06] MEDS ORDERED: Haloperidol Lactate 5 MG/ML VIAL IM SCH (09:45)
[2019-12-06] MEDS: Aspirin 325 MG TAB PO SCH (11:35)
[2019-12-06] MEDS: Calcitriol 0.25 MCG CAP PO SCH (11:35)
[2019-12-06] MEDS: Sevelamer Carbonate 800 MG TAB PO SCH ×3 (11:35→18:26)
[2019-12-06] MEDS: cefTRIAXone\\ROCEPHIN 1 GM in Sodium Chloride 0.9% 100 ML IVPB SCH (16:27)
--- NOTE | 2019-12-06 18:52 | OP ---
DATE OF PROCEDURE: 12/06/2019 PREOPERATIVE DIAGNOSES: Poor intravenous access; confusion; cirrhosis; end-stage renal disease, on dialysis; peritoneal dialysis, right arm; basilic vein transposition fistula functioning, in need of intravenous access. POSTOPERATIVE DIAGNOSES: Poor intravenous access; confusion; cirrhosis; end-stage renal disease, on dialysis; peritoneal dialysis, right arm; basilic vein transposition fistula functioning, in need of intravenous access. PROCEDURE PERFORMED: Right femoral vein triple-lumen catheter. ANESTHESIA: 1% Xylocaine was used. DESCRIPTION OF PROCEDURE: With the patient at bedside, his right groin was prepared with ChloraPrep and draped in routine fashion. Nursing staff multiple were required to restrain him due to his confusion. Local anesthetic was infiltrated in the skin and subcutaneous tissue. Seldinger technique used to place a triple-lumen catheter securing the catheter with 3-0 silk suture. Sterile dressing was applied. Each port aspirated blood, flushed with saline solution. Job ID: [id number]
[2019-12-06] MEDS: Pravastatin Sodium 20 MG TAB PO SCH (20:20)
[2019-12-07 03:45] LABS: #Lymphocytes 0.7 thou/uL (1.20-3.40); #Monocytes 0.8 thou/uL (0.11-0.59); #Neutrophils 14.3 thou/uL (1.40-6.50); %Eosinophils 0.2 % (0.0-10.0); %Lymphocytes 4.3 % (21.0-51.0); %Monocytes 5.1 % (0.0-10.0); %Neutrophils 90.4 % (42.0-75.0); Hemoglobin 10.4 g/dL (14.0-18.0); Mean Corpuscular Hemoglobin 31.2 pg (27.0-31.0); Mean Platelet Volume 7.6 fL (7.4-10.4); Platelet Count 183 thou/uL (130-400); RBC Distribution Width 13.6 % (11.5-14.5); Red Blood Cell (RBC) Count 3.34 mill/uL (4.70-6.10); White Blood Cell (WBC) Count 15.9 thou/uL (4.8-10.8)
[2019-12-07 04:05] LABS: Anion Gap 14 mmol/L (10-20); BUN (Urea Nitrogen) 30 mg/dL (8.4-25.7); Calc. Creatinine Clearance 13 mL/min (70-130); Calcium 8.5 mg/dL (7.8-10.44); Carbon Dioxide 30 mmol/L (23-31); Chloride 94 mmol/L (98-107); Estimated GFR-MDRD 10; Glucose 90 mg/dL (80-115); Potassium 4.4 mmol/L (3.5-5.1); Sodium 134 mmol/L (136-145)
[2019-12-07] MEDS: Sevelamer Carbonate 800 MG TAB PO SCH ×3 (08:09→16:41)
[2019-12-07] MEDS: Calcitriol 0.25 MCG CAP PO SCH (08:09)
[2019-12-07] MEDS: Aspirin 325 MG TAB PO SCH (08:09)
[2019-12-07] MEDS: Ondansetron PF 4 MG/2 ML Vial SLOW IVP PRN (09:40)
--- NOTE | 2019-12-07 09:43 | PRG ---
DATE OF SERVICE: 12/07/2019 SERVICE: Renal Medicine. SUBJECTIVE: Mr. Jones is a 59-year-old male with ESRD and followed up by the Renal Service for his dialysis. He underwent hemodialysis for 3 days with improvement of his azotemia. We will be resuming him back on peritoneal dialysis tonight using a 10-hour time. He still continues to be severely agitated at times. Last night, he inadvertently pulled out his femoral dialysis catheter. No complaints today. OBJECTIVE: VITAL SIGNS: Blood pressure is 137/88, heart rate 105, and respiratory rate 20. GENERAL: He is awake, but occasionally confused, not in distress. SKIN: Adequate turgor. HEENT: He has a pinkish conjunctivae. Anicteric sclerae. NECK: No neck mass. No carotid bruits. No JVD. CHEST: No deformities. LUNGS: Clear breath sounds. No wheezing. No crackles. HEART: Normal sinus rhythm. No murmur. No gallops. No rubs. ABDOMEN: Globular, soft, and nontender. No masses. EXTREMITIES: No edema. No deformities. MEDICATIONS: Medications of December 07, 2019, reviewed. LABORATORY DATA: Laboratories of December 07, 2019; white count 15.9, hemoglobin 10.4. Sodium 134, potassium 4.4, chloride 94, carbon dioxide 30, BUN 30, creatinine 5.62, and calcium 8.5. ASSESSMENT AND PLAN: 1. End-stage renal disease - stable. We will resume back CCPD regimen. We will do a 10-hour treatment with him. We will be using a 1.5 alternating with a 2.5% PD solution. Ultrafiltration will be done as tolerated by the patient. 2. Anemia - continuing weekly Epogen with this patient. 3. Confusion/agitation, currently on Seroquel. Overall, agree with current management. Continue supportive care. Job ID: [id number]
[2019-12-07] MEDS: cefTRIAXone\\ROCEPHIN 1 GM in Sodium Chloride 0.9% 100 ML IVPB SCH (16:20)
[2019-12-07] MEDS: Carvedilol 3.125 MG TAB PO SCH (16:22)
[2019-12-07 18:55] LABS: Bacteria/HPF None Seen HPF (None Seen); Bilirubin Negative (Negative); Blood, Urine 1+ (Negative); Clarity Clear (Clear); Glucose, Urine (Dipstick) 30 mg/dL (Negative); Leukocyte Negative Leu/uL (Negative); Nitrite Negative (Negative); Protein, Urine (Dipstick) 200 mg/dL (Neg-Trace); RBC/HPF 0-3 HPF (0-3); Squamous Epithelial 0-3 HPF (0-3); Urobilinogen Normal mg/dL (Less than 2); WBC/HPF 0-3 HPF (0-3)
[2019-12-07 20:59] LABS: RBC Count-Automated (BF) 1367 /cumm; WBC/Nucleated-Auto (BF) 28421 uL
[2019-12-07 21:26] LABS: Body Fluid Source Peritoneal Fluid; Clarity Hazy (Clear)
[2019-12-07 21:27] LABS: BF Color White; Tube # EDTA
[2019-12-07] MEDS: Pravastatin Sodium 20 MG TAB PO SCH (21:27)
[2019-12-07 21:59] LABS: BF Segmented Neutrophils 75 %; Cell Count Non Hematic 24 %; Lymphocytes 1 %
--- NOTE | 2019-12-07 22:31 | PDOC.HOSPP ---
- Subjective Encounter Date: 12/06/19 Subjective: The patient has been agitated and combative incapacitation dialysis. - Objective Vital Signs & Weight: Vital Signs (12 hours) Temp Pulse Pulse BP BP Pulse Ox Pulse Ox 12/07/19 20:00 95 12/07/19 19:46 98.6 F 12/07/19 16:00 98.4 F 12/07/19 14:53 103 H 102 H 114/74 96/67 91 L 12/07/19 11:36 98.8 F Weight Admit Weight 147 lb 11.355 oz Weight 143 lb 4.807 oz Most Recent Monitor Data Heart Rate from ECG 99 NIBP 110/80 NIBP BP-Mean 90 Respiration from ECG 19 SpO2 100 I&O: 12/06/19 12/07/19 12/08/19 06:59 06:59 06:59 Intake Total 681 419 5171 Output Total 1060 100 Balance -761 467 3357 Result Diagrams: 12/07/19 03:39 12/07/19 03:39 Hospitalist ROS - Medication Medications: Active Medications Generic Name Dose Route Start Last Admin Trade Name Freq PRN Reason Stop Dose Admin Aspirin 325 mg 12/03/19 09:00 12/07/19 08:09 Aspirin PO 325 mg DAILY MARCOS Administration Calcitriol 0.25 mcg 12/03/19 09:00 12/07/19 08:09 Rocaltrol PO 0.25 mcg DAILY MARCOS Administration Carvedilol 3.125 mg 12/07/19 17:00 12/07/19 16:22 Coreg PO 3.125 mg BID-WM MARCOS Administration Epoetin Dre-epbx 7,500 unit 12/02/19 18:00 12/02/19 20:22 Retacrit SC 7,500 unit Q7D MARCOS Administration Ceftriaxone Sodium 1 gm/ 100 mls @ 200 mls/hr 12/06/19 16:00 12/07/19 16:20 Sodium Chloride IVPB 100 mls Q24HR MARCOS Administration Ondansetron HCl 4 mg 12/04/19 11:31 12/07/19 09:40 Zofran SLOW IVP 4 mg Q6H PRN Administration Nausea/Vomiting Pravastatin Sodium 20 mg 12/02/19 21:00 12/07/19 21:27 Pravachol PO 20 mg HS MARCOS Administration Quetiapine Fumarate 50 mg 12/06/19 21:00 12/07/19 21:27 Seroquel PO 50 mg HS MARCOS Administration Quetiapine Fumarate 50 mg 12/07/19 09:00 12/07/19 08:17 Seroquel PO 50 mg DAILY [facility]OS Administration Sevelamer Carbonate 2,400 mg 12/03/19 12:00 12/07/19 16:41 Renvela PO 2,400 mg TID-WM MARCOS Administration Sodium Chloride 10 ml 12/04/19 21:00 12/07/19 21:27 Flush - Normal Saline IVF 10 ml Q12HR MARCOS Administration Sterile Water 1.2 ml 12/02/19 16:52 12/05/19 12:44 Water For Injection FS 1.2 ml PRN PRN Administration RECONSTITUTION - Exam Neck: no JVD Respiratory: CTAB Gastrointestinal: soft, non-distended, tender to palpation Neurological: cranial nerve grossly intact, no weakness Musculoskeletal: normal tone Psychiatric: not oriented Hosp A/P (1) Sepsis Code(s): A41.9 - SEPSIS, UNSPECIFIED ORGANISM Status: Acute (2) Peritonitis Code(s): K65.9 - PERITONITIS, UNSPECIFIED Status: Acute (3) Acute metabolic encephalopathy Code(s): G93.41 - METABOLIC ENCEPHALOPATHY Status: Acute (4) Uremia Code(s): N19 - UNSPECIFIED KIDNEY FAILURE Status: Acute (5) ESRD (end stage renal disease) on dialysis Code(s): N18.6 - END STAGE RENAL DISEASE; Z99.2 - DEPENDENCE ON RENAL DIALYSIS Status: Chronic (6) HTN (hypertension) Code(s): I10 - ESSENTIAL (PRIMARY) HYPERTENSION Status: Chronic Qualifiers: Hypertension type: essential hypertension Qualified Code(s): I10 - Essential (primary) hypertension - Plan 12/05: Patient with worsening leukocytosis and abdominal tenderness. Suspect peritonitis given his recent PD dialysis. Start IV ceftriaxone. Patient is combative and agitated we will give him 100 mg of Seroquel x1 then increase the dose to 50 twice daily. Continue hemodialysis per nephrology.
--- NOTE | 2019-12-07 22:39 | PDOC.HOSPP ---
- Subjective Encounter Date: 12/07/19 Encounter Time: 12:00 Subjective: The patient's mental status has improved significantly since yesterday. He is alert and oriented and not combative anymore. - Objective Vital Signs & Weight: Vital Signs (12 hours) Temp Pulse Pulse BP BP Pulse Ox Pulse Ox 12/07/19 20:00 95 12/07/19 19:46 98.6 F 12/07/19 16:00 98.4 F 12/07/19 14:53 103 H 102 H 114/74 96/67 91 L 12/07/19 11:36 98.8 F Weight Admit Weight 147 lb 11.355 oz Weight 143 lb 4.807 oz Most Recent Monitor Data Heart Rate from ECG 99 NIBP 110/80 NIBP BP-Mean 90 Respiration from ECG 19 SpO2 100 I&O: 12/06/19 12/07/19 12/08/19 06:59 06:59 06:59 Intake Total 504 416 1198 Output Total 1060 100 Balance -160 108 9092 Result Diagrams: 12/07/19 03:39 12/07/19 03:39 Hospitalist ROS - Medication Medications: Active Medications Generic Name Dose Route Start Last Admin Trade Name Freq PRN Reason Stop Dose Admin Aspirin 325 mg 12/03/19 09:00 12/07/19 08:09 Aspirin PO 325 mg DAILY MARCOS Administration Calcitriol 0.25 mcg 12/03/19 09:00 12/07/19 08:09 Rocaltrol PO 0.25 mcg DAILY MARCOS Administration Carvedilol 3.125 mg 12/07/19 17:00 12/07/19 16:22 Coreg PO 3.125 mg BID-WM MARCOS Administration Epoetin Dre-epbx 7,500 unit 12/02/19 18:00 12/02/19 20:22 Retacrit SC 7,500 unit Q7D MARCOS Administration Ceftriaxone Sodium 1 gm/ 100 mls @ 200 mls/hr 12/06/19 16:00 12/07/19 16:20 Sodium Chloride IVPB 100 mls Q24HR MARCOS Administration Ondansetron HCl 4 mg 12/04/19 11:31 12/07/19 09:40 Zofran SLOW IVP 4 mg Q6H PRN Administration Nausea/Vomiting Pravastatin Sodium 20 mg 12/02/19 21:00 12/07/19 21:27 Pravachol PO 20 mg HS MARCOS Administration Quetiapine Fumarate 50 mg 12/06/19 21:00 12/07/19 21:27 Seroquel PO 50 mg HS MARCOS Administration Quetiapine Fumarate 50 mg 12/07/19 09:00 12/07/19 08:17 Seroquel PO 50 mg DAILY MARCOS Administration Sevelamer Carbonate 2,400 mg 12/03/19 12:00 12/07/19 16:41 Renvela PO 2,400 mg TID-WM MARCOS Administration Sodium Chloride 10 ml 12/04/19 21:00 12/07/19 21:27 Flush - Normal Saline IVF 10 ml Q12HR MARCOS Administration Sterile Water 1.2 ml 12/02/19 16:52 12/05/19 12:44 Water For Injection FS 1.2 ml PRN PRN Administration RECONSTITUTION - Exam General Appearance: NAD ENT: normocephalic atraumatic Neck: supple, no JVD Heart: RRR Respiratory: CTAB Gastrointestinal: soft, non-distended, normal bowel sounds, tender to palpation Neurological: cranial nerve grossly intact, no new deficit Hosp A/P (1) Sepsis Code(s): A41.9 - SEPSIS, UNSPECIFIED ORGANISM Status: Acute (2) Peritonitis Code(s): K65.9 - PERITONITIS, UNSPECIFIED Status: Acute (3) Acute metabolic encephalopathy Code(s): G93.41 - METABOLIC ENCEPHALOPATHY Status: Acute (4) Uremia Code(s): N19 - UNSPECIFIED KIDNEY FAILURE Status: Acute (5) ESRD (end stage renal disease) on dialysis Code(s): N18.6 - END STAGE RENAL DISEASE; Z99.2 - DEPENDENCE ON RENAL DIALYSIS Status: Chronic (6) HTN (hypertension) Code(s): I10 - ESSENTIAL (PRIMARY) HYPERTENSION Status: Chronic Qualifiers: Hypertension type: essential hypertension Qualified Code(s): I10 - Essential (primary) hypertension - Plan 12/05: Patient with worsening leukocytosis and abdominal tenderness. Suspect peritonitis given his recent PD dialysis. Start IV ceftriaxone. Patient is combative and agitated we will give him 100 mg of Seroquel x1 then increase the dose to 50 twice daily. Continue hemodialysis per nephrology. 12/06: The patient's leukocytosis improving. His mental status is also improving. Continue IV antibiotics with ceftriaxone and continue Seroquel 50 mg p.o. twice daily. He has been transitioned to peritoneal dialysis again. Recommend sending peritoneal fluid for analysis and culture.
[2019-12-08 04:48] LABS: Anion Gap 19 mmol/L (10-20); BUN (Urea Nitrogen) 40 mg/dL (8.4-25.7); Calc. Creatinine Clearance 11 mL/min (70-130); Calcium 8.5 mg/dL (7.8-10.44); Carbon Dioxide 22 mmol/L (23-31); Chloride 92 mmol/L (98-107); Estimated GFR-MDRD 9; Glucose 149 mg/dL (80-115); Potassium 4.5 mmol/L (3.5-5.1); Sodium 128 mmol/L (136-145)
[2019-12-08 04:57] LABS: Hemoglobin 11.3 g/dL (14.0-18.0); Hypochromia SLIGHT = 6-15 cells (100X) (0-5/hpf); Lymphocytes 7 % (21-51); MDiff Complete? YES; Mean Corpuscular HGB CONC 31.8 g/dL (32.0-36.0); Mean Corpuscular Hemoglobin 31.8 pg (27.0-31.0); Mean Platelet Volume 8.5 fL (7.4-10.4); Monocytes 3 % (0-10); Neutrophil 90 % (42-75); Platelet Count 204 thou/uL (130-400); Platelet Morphology Comment Appears Adequate; RBC Distribution Width 13.4 % (11.5-14.5); Red Blood Cell (RBC) Count 3.56 mill/uL (4.70-6.10); White Blood Cell (WBC) Count 10.6 thou/uL (4.8-10.8)
[2019-12-08] MEDS: Carvedilol 3.125 MG TAB PO SCH ×2 (08:50→16:00)
[2019-12-08] MEDS: Sevelamer Carbonate 800 MG TAB PO SCH ×3 (08:50→15:59)
[2019-12-08] MEDS: Aspirin 325 MG TAB PO SCH (08:50)
[2019-12-08] MEDS: Calcitriol 0.25 MCG CAP PO SCH (08:51)
--- NOTE | 2019-12-08 09:20 | PRG ---
DATE OF SERVICE: 12/08/2019 SERVICE: Renal Medicine. SUBJECTIVE: Mr. Jones is a 59-year-old male with ESRD and currently on peritoneal dialysis. He underwent peritoneal dialysis and tolerated it. I did speak with my PD nurse and she noted cloudiness of the PD fluid. We sent a cell count and cell count was noted to be elevated at 28,000 plus. So far, Gram-stain and culture are negative, but I do suspect he most likely has a peritonitis. Please note, he has been started on ceftriaxone at 1 g IV daily about 2 days ago. Our plan is to continue that. We will await for the final results of the PD fluid WHEEL SETTER. No other complaints. He is feeling less agitated. OBJECTIVE: VITAL SIGNS: Blood pressure 96/79, heart rate 101, and respiratory rate 17. GENERAL: Awake, sitting comfortable, not in overt distress. SKIN: Adequate turgor. HEENT: He has pinkish conjunctivae. Anicteric sclerae. NECK: No neck mass. No carotid bruits. No JVD. CHEST: No deformities. LUNGS: Clear breath sounds. HEART: Normal sinus rhythm. No murmur. No gallops. No rubs. ABDOMEN: Globular, soft, and nontender. No masses. Positive for PD catheter. EXTREMITIES: No edema. No deformities. MEDICATIONS: Medications of December 08, 2019, were reviewed. LABORATORY DATA: Laboratories of December 08, 2019; white count 10.6, hemoglobin 11.3. Sodium 128, potassium 4.5, chloride 92, carbon dioxide 22, BUN 40, creatinine 6.22, glucose 149, and calcium 8.5. White count 10.6, hemoglobin 11.3. PD fluid was noted to be a hazy. PD fluid white count was 28,421. PD fluid culture - no growth today. No organism since. ASSESSMENT AND PLAN: 1. Cloudy PD fluid - I suspect this patient has peritonitis. We will empirically continue IV ceftriaxone. Upon discharge, we will consider placing intraperitoneal antibiotics with the PD fluid. 2. Agitation, much improved. Continue current antipsychotic medications. 3. End-stage renal disease, stable. We will continue current CCPD regimen. He is tolerating the current peritoneal dialysis regimen. We will recheck CBC and basic metabolic panel in a.m. Agree with current management. Job ID: [id number]
[2019-12-08] MEDS: cefTRIAXone\\ROCEPHIN 1 GM in Sodium Chloride 0.9% 100 ML IVPB SCH (16:00)
--- NOTE | 2019-12-08 16:07 | PDOC.HOSPP ---
- Subjective Encounter Date: 12/08/19 Subjective: The patient is alert and oriented. Denies abdominal pain - Objective Vital Signs & Weight: Vital Signs (12 hours) Temp 12/08/19 16:00 97.9 F 12/08/19 11:51 97.6 F 12/08/19 07:40 97.6 F Weight Admit Weight 147 lb 11.355 oz Weight 143 lb 4.807 oz Most Recent Monitor Data Heart Rate from ECG 88 NIBP 113/80 NIBP BP-Mean 91 Respiration from ECG 22 SpO2 99 I&O: 12/07/19 12/08/19 12/09/19 06:59 06:59 06:59 Intake Total 836 0 Output Total 100 Balance 836 2009 Result Diagrams: 12/08/19 04:11 12/08/19 04:11 Hospitalist ROS - Medication Medications: Active Medications Generic Name Dose Route Start Last Admin Trade Name Freq PRN Reason Stop Dose Admin Aspirin 325 mg 12/03/19 09:00 12/08/19 08:50 Aspirin PO 325 mg DAILY MARCOS Administration Calcitriol 0.25 mcg 12/03/19 09:00 12/08/19 08:51 Rocaltrol PO 0.25 mcg DAILY MARCOS Administration Carvedilol 3.125 mg 12/07/19 17:00 12/08/19 16:00 Coreg PO 3.125 mg BID-WM MARCOS Administration Epoetin Dre-epbx 7,500 unit 12/02/19 18:00 12/02/19 20:22 Retacrit SC 7,500 unit Q7D MARCOS Administration Ceftriaxone Sodium 1 gm/ 100 mls @ 200 mls/hr 12/06/19 16:00 12/08/19 16:00 Sodium Chloride IVPB 100 mls Q24HR MARCOS Administration Ondansetron HCl 4 mg 12/04/19 11:31 12/07/19 09:40 Zofran SLOW IVP 4 mg Q6H PRN Administration Nausea/Vomiting Pravastatin Sodium 20 mg 12/02/19 21:00 12/07/19 21:27 Pravachol PO 20 mg HS MARCOS Administration Quetiapine Fumarate 50 mg 12/06/19 21:00 12/07/19 21:27 Seroquel PO 50 mg HS MARCOS Administration Sevelamer Carbonate 2,400 mg 12/03/19 12:00 12/08/19 15:59 Renvela PO 2,400 mg TID-WM MARCOS Administration Sodium Chloride 10 ml 12/04/19 21:00 12/08/19 11:24 Flush - Normal Saline IVF 10 ml Q12HR MARCOS Administration Sterile Water 1.2 ml 12/02/19 16:52 12/05/19 12:44 Water For Injection FS 1.2 ml PRN PRN Administration RECONSTITUTION - Exam General Appearance: NAD Eye: PERRL Neck: supple, no JVD Heart: RRR, no murmur, no gallops, no rubs, normal peripheral pulses Respiratory: CTAB, no wheezes, no rales, no ronchi, normal chest expansion Gastrointestinal: soft, non-distended, normal bowel sounds, tender to palpation Neurological: cranial nerve grossly intact, no weakness Hosp A/P (1) Sepsis Code(s): A41.9 - SEPSIS, UNSPECIFIED ORGANISM Status: Acute (2) Peritonitis Code(s): K65.9 - PERITONITIS, UNSPECIFIED Status: Acute (3) Acute metabolic encephalopathy Code(s): G93.41 - METABOLIC ENCEPHALOPATHY Status: Acute (4) Uremia Code(s): N19 - UNSPECIFIED KIDNEY FAILURE Status: Acute (5) ESRD (end stage renal disease) on dialysis Code(s): N18.6 - END STAGE RENAL DISEASE; Z99.2 - DEPENDENCE ON RENAL DIALYSIS Status: Chronic (6) HTN (hypertension) Code(s): I10 - ESSENTIAL (PRIMARY) HYPERTENSION Status: Chronic Qualifiers: Hypertension type: essential hypertension Qualified Code(s): I10 - Essential (primary) hypertension - Plan 12/05: Patient with worsening leukocytosis and abdominal tenderness. Suspect peritonitis given his recent PD dialysis. Start IV ceftriaxone. Patient is combative and agitated we will give him 100 mg of Seroquel x1 then increase the dose to 50 twice daily. Continue hemodialysis per nephrology. 12/06: The patient's leukocytosis improving. His mental status is also improving. Continue IV antibiotics with ceftriaxone and continue Seroquel 50 mg p.o. twice daily. He has been transitioned to peritoneal dialysis again. Recommend sending peritoneal fluid for analysis and culture. 12/07: Sepsis due to peritonitis improving. Peritoneal culture pending. Continue antibiotics. Dialysis per nephrology.
[2019-12-08] MEDS: Ondansetron PF 4 MG/2 ML Vial SLOW IVP PRN (16:10)
[2019-12-08] MEDS: Pravastatin Sodium 20 MG TAB PO SCH (21:50)
[2019-12-09 06:20] LABS: Eosinophils 2 % (0-10); Lymphocytes 14 % (21-51); MDiff Complete? YES; Mean Corpuscular HGB CONC 32.3 g/dL (32.0-36.0); Mean Corpuscular Hemoglobin 32.1 pg (27.0-31.0); Mean Corpuscular Volume 99.3 fL (78.0-98.0); Monocytes 7 % (0-10); Neutrophil 77 % (42-75); Platelet Count 229 thou/uL (130-400); Platelet Morphology Comment Appears Adequate; RBC Distribution Width 13.2 % (11.5-14.5); Red Blood Cell (RBC) Count 3.43 mill/uL (4.70-6.10); White Blood Cell (WBC) Count 9.2 thou/uL (4.8-10.8)
[2019-12-09 06:26] LABS: Anion Gap 16 mmol/L (10-20); BUN (Urea Nitrogen) 47 mg/dL (8.4-25.7); Calc. Creatinine Clearance 11 mL/min (70-130); Calcium 8.2 mg/dL (7.8-10.44); Carbon Dioxide 26 mmol/L (23-31); Chloride 91 mmol/L (98-107); Estimated GFR-MDRD 9; Glucose 121 mg/dL (80-115); Potassium 3.8 mmol/L (3.5-5.1); Sodium 129 mmol/L (136-145)
[2019-12-09] MEDS: Calcitriol 0.25 MCG CAP PO SCH (08:46)
[2019-12-09] MEDS: Sevelamer Carbonate 800 MG TAB PO SCH ×3 (08:46→16:49)
[2019-12-09] MEDS: Carvedilol 3.125 MG TAB PO SCH ×2 (08:46→16:51)
[2019-12-09] MEDS: Aspirin 325 MG TAB PO SCH (08:47)
--- NOTE | 2019-12-09 09:35 | PRG ---
DATE OF SERVICE: 12/09/2019 SUBJECTIVE: Mr. Jones is a 59-year-old male with ESRD and currently on peritoneal dialysis. He tolerated his peritoneal dialysis yesterday. He is noted to be less agitated. During the last 2 days, his PD fluid was noted to be cloudy. We sent it for cell count and there was an elevated cell count. However, the PD fluid culture shows no growth to date. My bias is to treat him for peritonitis. He is currently on IV ceftriaxone and he seems to be responding. He denies any abdominal pain. His white count is also going down. No other complaints today. OBJECTIVE: VITAL SIGNS: Blood pressure 97/68, heart rate 89, respiratory rate 18, temperature 97.5, and pulse ox 99%. GENERAL: Noted to be awake, alert, comfortable, not in overt distress. SKIN: Adequate turgor. HEENT: He has pinkish conjunctivae. Anicteric sclerae. NECK: No neck mass. No carotid bruits. No JVD. CHEST: No deformities. LUNGS: Clear breath sounds. HEART: Normal sinus rhythm. No murmur. No gallops. No rubs. ABDOMEN: Globular, soft, and nontender. No masses. Positive for PD catheter. EXTREMITIES: No edema. No deformities. MEDICATIONS: Medications of December 09, 2019, were reviewed. LABORATORY DATA: Laboratories of December 09, 2019; white count 9.2, hemoglobin 11. Sodium 129, potassium 3.8, chloride 91, carbon dioxide 26, BUN 47, creatinine 6.38, glucose 121, and calcium 8.2. ASSESSMENT AND PLAN: 1. End-stage renal disease, stable, tolerating current peritoneal dialysis regimen. No changes to be made. 2. Peritonitis - peritoneal fluid cell count was noted to be elevated at 28,421. Gram-stain was negative and culture is still negative. My plan is to continue empiric treatment as if he has peritonitis. 3. Agitation, much improved with Seroquel. Continue supportive care. 4. Anemia, continuing weekly Epogen. Overall, agree with current management. Job ID: [id number]
[2019-12-09] MEDS: Lisinopril 2.5 MG TAB PO SCH (12:26)
--- NOTE | 2019-12-09 14:52 | PDOC.HOSPP ---
- Subjective Encounter Date: 12/09/19 Subjective: Mental status at baseline - Objective Vital Signs & Weight: Vital Signs (12 hours) Temp Pulse Resp BP BP BP Pulse Ox 12/09/19 12:26 94 94/60 12/09/19 12:00 97.2 F L 93 20 100/69 99 12/09/19 08:46 72 107/65 12/09/19 08:00 99 12/09/19 07:40 97.5 F L 89 18 97/68 99 12/09/19 04:00 97.5 F L 77 18 111/67 97 Weight Admit Weight 147 lb 11.355 oz Weight 143 lb 4.807 oz Most Recent Monitor Data Heart Rate from ECG 89 NIBP 125/82 NIBP BP-Mean 96 Respiration from ECG 18 SpO2 99 I&O: 12/08/19 12/09/19 12/10/19 06:59 06:59 06:59 Intake Total 2110 Output Total 100 Balance 2009 Result Diagrams: 12/09/19 05:36 12/09/19 05:36 Hospitalist ROS - Medication Medications: Active Medications Generic Name Dose Route Start Last Admin Trade Name Freq PRN Reason Stop Dose Admin Aspirin 325 mg 12/03/19 09:00 12/09/19 08:47 Aspirin PO 325 mg DAILY MARCOS Administration Calcitriol 0.25 mcg 12/03/19 09:00 12/09/19 08:46 Rocaltrol PO 0.25 mcg DAILY MARCOS Administration Carvedilol 3.125 mg 12/07/19 17:00 12/09/19 08:46 Coreg PO 3.125 mg BID-WM MARCOS Administration Epoetin Dre-epbx 7,500 unit 12/02/19 18:00 12/02/19 20:22 Retacrit SC 7,500 unit Q7D MARCOS Administration Ceftriaxone Sodium 1 gm/ 100 mls @ 200 mls/hr 12/06/19 16:00 12/08/19 16:00 Sodium Chloride IVPB 100 mls Q24HR MARCOS Administration Lisinopril 2.5 mg 12/09/19 12:00 12/09/19 12:26 Zestril PO Not Given 1200 MARCOS Ondansetron HCl 4 mg 12/04/19 11:31 12/08/19 16:10 Zofran SLOW IVP 4 mg Q6H PRN Administration Nausea/Vomiting Pravastatin Sodium 20 mg 12/02/19 21:00 12/08/19 21:50 Pravachol PO 20 mg HS MARCOS Administration Quetiapine Fumarate 50 mg 12/06/19 21:00 12/08/19 21:50 Seroquel PO 50 mg HS MARCOS Administration Quetiapine Fumarate 25 mg 12/09/19 09:00 12/09/19 08:47 Seroquel PO 25 mg DAILY MARCOS Administration Sevelamer Carbonate 2,400 mg 12/03/19 12:00 12/09/19 12:25 Renvela PO 2,400 mg TID-WM MARCOS Administration Sodium Chloride 10 ml 12/04/19 21:00 12/09/19 08:47 Flush - Normal Saline IVF 10 ml Q12HR MARCOS Administration Sterile Water 1.2 ml 12/02/19 16:52 12/05/19 12:44 Water For Injection FS 1.2 ml PRN PRN Administration RECONSTITUTION - Exam General Appearance: NAD ENT: normocephalic atraumatic Neck: supple, no JVD Heart: RRR, no murmur, no gallops, no rubs, normal peripheral pulses Respiratory: CTAB, no wheezes, no rales, no ronchi, normal chest expansion Gastrointestinal: soft, non-tender, non-distended, normal bowel sounds Hosp A/P (1) Sepsis Code(s): A41.9 - SEPSIS, UNSPECIFIED ORGANISM Status: Acute (2) Peritonitis Code(s): K65.9 - PERITONITIS, UNSPECIFIED Status: Acute (3) Acute metabolic encephalopathy Code(s): G93.41 - METABOLIC ENCEPHALOPATHY Status: Acute (4) Uremia Code(s): N19 - UNSPECIFIED KIDNEY FAILURE Status: Acute (5) ESRD (end stage renal disease) on dialysis Code(s): N18.6 - END STAGE RENAL DISEASE; Z99.2 - DEPENDENCE ON RENAL DIALYSIS Status: Chronic (6) HTN (hypertension) Code(s): I10 - ESSENTIAL (PRIMARY) HYPERTENSION Status: Chronic Qualifiers: Hypertension type: essential hypertension Qualified Code(s): I10 - Essential (primary) hypertension - Plan 12/05: Patient with worsening leukocytosis and abdominal tenderness. Suspect peritonitis given his recent PD dialysis. Start IV ceftriaxone. Patient is combative and agitated we will give him 100 mg of Seroquel x1 then increase the dose to 50 twice daily. Continue hemodialysis per nephrology. 12/06: The patient's leukocytosis improving. His mental status is also improving. Continue IV antibiotics with ceftriaxone and continue Seroquel 50 mg p.o. twice daily. He has been transitioned to peritoneal dialysis again. Recommend sending peritoneal fluid for analysis and culture. 12/07: Sepsis due to peritonitis improving. Peritoneal culture pending. Continue antibiotics. Dialysis per nephrology. 12/08: Sepsis resolving. No growth so far on culture Plan to DC in 24hrs
[2019-12-09] MEDS: cefTRIAXone\\ROCEPHIN 1 GM in Sodium Chloride 0.9% 100 ML IVPB SCH (16:49)
[2019-12-09] MEDS: Pravastatin Sodium 20 MG TAB PO SCH (20:29)
[2019-12-09] MEDS: EPOETIN ALFA-EPBX (ESRD) 4,000 UNIT/ML VIAL SC SCH (20:29)
[2019-12-10 06:41] LABS: Eosinophils 1 % (0-10); Hemoglobin 11.1 g/dL (14.0-18.0); Lymphocytes 9 % (21-51); MDiff Complete? YES; Mean Corpuscular Hemoglobin 31.5 pg (27.0-31.0); Mean Corpuscular Volume 98.5 fL (78.0-98.0); Mean Platelet Volume 8.6 fL (7.4-10.4); Monocytes 9 % (0-10); Neutrophil 81 % (42-75); Platelet Count 235 thou/uL (130-400); RBC Distribution Width 13.3 % (11.5-14.5); Red Blood Cell (RBC) Count 3.53 mill/uL (4.70-6.10); White Blood Cell (WBC) Count 9.7 thou/uL (4.8-10.8)
[2019-12-10] MEDS: Sevelamer Carbonate 800 MG TAB PO SCH ×2 (09:20→14:05)
[2019-12-10] MEDS: Aspirin 325 MG TAB PO SCH (09:21)
[2019-12-10] MEDS: Carvedilol 3.125 MG TAB PO SCH (09:21)
[2019-12-10] MEDS: Calcitriol 0.25 MCG CAP PO SCH (09:21)
[2019-12-10] MEDS: Lisinopril 2.5 MG TAB PO SCH (14:05)
--- NOTE | 2019-12-10 14:17 | PRG ---
DATE OF SERVICE: 12/10/2019 PRIMARY RESIDENTIAL DIRECTOR: Dr. Dubon. SUBJECTIVE: Mr. Jones is doing better today. He is up and around. No complaints. OBJECTIVE: VITAL SIGNS: Blood pressure earlier 125/75, now 93/60. Pulse 88, regular. LUNGS: Clear. CARDIAC: Normal S1. Normal S2. ABDOMEN: Soft and nontender. ASSESSMENT: 1. Cardiomyopathy, stable. 2. End-stage renal disease, on peritoneal dialysis. PLAN: Continue medical regimen. We will be available if needed. Dr. Sam is available this weekend. Please re-consult if needed. I believe Dr. Dubon is the primary health care / medical job titles. Job ID: [id number]
[2019-12-10 16:34] VITALS: BP 111/73; TEMP 97.5
--- NOTE | 2019-12-13 11:13 | PQF ---
AMANDA PATEL MOEZ [id number] CLINICAL DOCUMENTATION CLARIFICATION FORM: POST DISCHARGE Addendum to original discharge summary date: ____ Late entry note date: __ DATE:12/13/2019 ATTN: BRIANA MAYS Please exercise your independent, professional judgment in responding to the clarification form. Clinical indicators are provided on the bottom of this form for your review Please check appropriate box(s): kindly clarify the metabolic encephalopathy etiology; [ >] Metabolic encephalopathy due to End stage renal disease [ ] Metabolic encephalopathy due to withdrawal from anti anxiety medication [ ] Metabolic encephalopathy due to adverse effect of xanax [ ] Other diagnosis [ ] Unable to determine For continuity of documentation, please document condition throughout progress notes and discharge summary. Thank You. CLINICAL INDICATORS - SIGNS / SYMPTOMS / LABS Altered mental status, unclear etiology at this point, most likely related to his uremic state with very elevated BUN and elevated creatinine-Documented in H& P on 12/01 by Everardo Colvin End stage renal disease on peritoneal dialysis -Documented in H&P on 12/01 by Everardo Colvin He has marked altered mental status secondary probably to withdrawal from his anti-anxity medication -Documented in consultation on 12/01 by Osmar Bowers MD Mental status changes -this could be drug induced -Documented in consultation report on 12/01 by Lex Sorto MD Acute metabolic encephalopathy-Documented in hospitalist progress note on 12/03 by Rocky Quick RISK FACTORS End stage renal disease on peritoneal dialysis -Documented in H&P on 12/01 by Everardo Colvin He has marked altered mental status secondary probably to withdrawal from his anti-anxity medication -Documented in consultation on 12/01 by Osmar Bowers MD Mental status changes -this could be drug induced -Documented in consultation report on 12/01 by Lex Sorto MD TREATMENTS: IV normal salin 100 ml/H-Documented in H&P on 12/01 by Everardo Colvin We will resume back xanax at the smallest dose of 0.125 mg tablet at bedtime- Documented in PN on 12/03 by Lex Sorto MD Peritoneal dialysis on 11/30 [employer] Observer Crystal Reports Winform Viewer (This form is maintained as a part of the permanent medical record) 2014 [employer]. All Rights Reserved [email or web address]
--- NOTE | 2019-12-13 23:54 | PQF ---
AMANDA PATEL WILLIAN MAYS [id number] [facility]-255 [id number] CLINICAL DOCUMENTATION CLARIFICATION FORM: POST DISCHARGE Addendum to original discharge summary date: ____ Late entry note date: __ DATE:12/13/2019 ATTN: WILLIAN MAYS Please exercise your independent, professional judgment in responding to the clarification form. Clinical indicators are provided on the bottom of this form for your review Diagnosis: Peritonitis Present on Admission (POA): [ >] Yes [ ] No [ ] Unable to determine Coding guidelines require hospitals to identify whether a diagnosis was present on admission (POA) or not. To accurately assign the appropriate POA indicator, this information must be clearly documented within the medical record. CLINICAL INDICATORS - SIGNS / SYMPTOMS / LABS The patient has been confused sometimes at night. He is unable to do peritoneal dialysis consistently. recently, he was seen by surgeon and transposition of the AV fistula was done. He also had a leak in the PD catheter, Which was said to have been repaired-Documented in consultation report on by Lex Sorto MD We are now being consulted for his maintenance peritoneal dialysis-Documented in consultation report on by Lex Sroto MD Patient with worsening leukocytosis and abdominal tenderness. Suspect peritonitis given his recent PD dialysis -Documented in hospitalist progress note on 12/05 by Willian Mays MD Sepsis due to peritonitis improving--Documented in hospitalist progress note on 12/06 by Willian Mays MD RISK FACTORS: He also had a leak in the PD catheter, Which was said to have been repaired- Documented in consultation report on by Lex Sorto MD We are now being consulted for his maintenance peritoneal dialysis-Documented in consultation report on by Lex Sorto MD TREATMENT: Start IV ceftriaxone -Documented in hospitalist progress note on 12/05 by Willian Mays MD Continue IV antibiotics with ceftriaxone-Documented in hospitalist progress note on 12/05 by Willian Mays MD [employer] Truing Inspector Crystal Reports Winform Viewer (This form is maintained as a part of the permanent medical record) 2014 [employer]. All Rights Reserved [email or web address]
== END 2019-12-10 17:11 | disposition home or self-care (01) | DRG 371 ==
LOC: ERS 12:43 → ERHOLD 15:38 → 2NO 17:03 → IMCU/EMU 12-06 13:35 → T4-A 12-08 17:42
PROVIDERS: ADMIT Internal Medicine; ATTEND Internal Medicine
PROC: 06HM33Z Insertion of Infusion Device into Right Femoral Vein, Percutaneous Approach (ICD-10-PCS; 2019-12-06)
PROC: 3E1M39Z Irrigation of Peritoneal Cavity using Dialysate, Percutaneous Approach (ICD-10-PCS; principal; 2019-12-07)
DX: K65.8 Other peritonitis (principal); G93.41 Metabolic encephalopathy; N18.6 End stage renal disease; I21.4 Non-ST elevation (NSTEMI) myocardial infarction; A41.9 Sepsis, unspecified organism; I12.0 Hypertensive chronic kidney disease with stage 5 chronic kidney disease or end stage renal disease; N25.81 Secondary hyperparathyroidism of renal origin; I42.0 Dilated cardiomyopathy; G25.3 Myoclonus; K74.60 Unspecified cirrhosis of liver; Z87.891 Personal history of nicotine dependence; Z98.890 Other specified postprocedural states; Z90.49 Acquired absence of other specified parts of digestive tract; T42.4X5A Adverse effect of benzodiazepines, initial encounter; E83.39 Other disorders of phosphorus metabolism; Z99.2 Dependence on renal dialysis; D63.1 Anemia in chronic kidney disease; B19.20 Unspecified viral hepatitis C without hepatic coma; F41.9 Anxiety disorder, unspecified; E87.6 Hypokalemia
CPT/HCPCS: 36415; 36416; 70450; 71045; 80048; 80053; 81003; 81015; 82140; 82550; 82553; 83605; 83970; 84100; 84484; 85007; 85025; 85027; 85060; 85610; 85730; 87040; 87070; 87077; 87186; 87205; 89051; 90935; 90945; 93005; 93306; 94760; G0257; J0696; J1630; J1644; J2405; J3486; J3490; Q5105